=== PATIENT | female | born 1965 | race Caucasian/White ===

== ENCOUNTER 2019-06-22 11:07 | Day surgery (SDC) | payer BC ==
[2019-06-16 16:21] VITALS: BMI 40.2
[2019-06-22] MEDS ORDERED: HYDROmorphone 0.5 MG/0.5 ML SYRINGE IVP PRN (11:45)
[2019-06-22] MEDS ORDERED: MIDAZOLAM 2 MG/2 ML VIAL IV PRN (11:45)
[2019-06-22] MEDS: LACTATED RINGERS 1,000 ML IV SCH (12:10)
[2019-06-22 12:28] LABS: Anisocytosis Slight; Basophils # (A) 0.1 k/uL (0-0.2); Basophils % (A) 1 %; Eosinophils # (A) 0.2 k/uL (0-0.7); Eosinophils % (A) 2 %; HCT 45.8 % (34.0-46.0); HGB 15.3 gm/dL (11.4-16.0); Lymphocytes # (A) 0.8 k/uL (1.0-4.8); Lymphocytes % (A) 9 %; MCHC 33.4 g/dL (31.0-37.0); MCV 89.6 fL (80.0-100.0); Mean Platelet Volume 7.1; Monocytes # (A) 0.5 k/uL (0-1.0); Monocytes % (A) 5 %; Neutrophils # (A) 7.1 k/uL (1.3-7.7); Neutrophils % (A) 81 %; Platelet Count 370 k/uL (150-450); RBC 5.11 m/uL (3.80-5.40); RDW 16.7 % (11.5-15.5); WBC 8.7 k/uL (3.8-10.6)
[2019-06-22] MEDS ORDERED: IV FLUID CONTINUATION 950 ML IV ONE (12:34)
[2019-06-22] MEDS ORDERED: FUROSEMIDE 10 MG/ML 2 ML VIAL ONE (12:34)
[2019-06-22] MEDS ORDERED: PHENYLEPHRINE-0.9% NACL SYG 1 MG/10 ML SYRINGE ONE (12:34)
[2019-06-22] MEDS ORDERED: fentaNYL (PF) 50 MCG/ML 2 ML AMP ONE (12:34)
[2019-06-22] MEDS ORDERED: ROPIVACAINE 5MG/ML 20ML VIAL ONE (12:34)
[2019-06-22] MEDS ORDERED: MIDAZOLAM 2 MG/2 ML VIAL ONE (12:34)
[2019-06-22] MEDS ORDERED: PROTAMINE SULFATE 10 MG/ML 5 ML VIAL IV ONE (12:34)
[2019-06-22] MEDS ORDERED: PROPOFOL 10 MG/ML 20 ML VIAL IV ONE (12:34)
[2019-06-22] MEDS ORDERED: HEPARIN SODIUM,PORCINE 10,000 UNIT/ML 1 ML VIAL ONE (12:34)
[2019-06-22] MEDS ORDERED: SUCCINYLCHOLINE CHLORIDE VIAL 200 MG/10 ML VIAL IV ONE (12:34)
[2019-06-22] MEDS ORDERED: LIDOCAINE 1% INJ 10MG/ML (20 ML MDV) SQ ONE (13:25)
[2019-06-22] MEDS ORDERED: HEPARIN SODIUM (1,000 UNIT/ML) 1,000 UNIT in SODIUM CHLORIDE 0.9% 1,000 ML IRRIGATION ONE (13:46)
[2019-06-22] MEDS ORDERED: HEPARIN SOD,PORK IN 0.45% NACL 25,000 UNIT in 0.45% NACL 1 250ML.BAG IV ONE (13:46)
[2019-06-22] MEDS ORDERED: LACTATED RINGERS 1,000 ML IV ONE (17:15)
[2019-06-22] MEDS ORDERED: IOPAMIDOL-370 100ML BTL INJ ONE (17:16)
--- NOTE | 2019-06-22 18:09 | P.PCN ---
Preoperative Diagnosis: Diagnosis Atrial tachycardia with RVR refractory to drug therapy Atrial fibrillation, symptomatic, refractory to therapy Result No left atrial appendage mass seen on intracardiac echo Successful ablation for atrial tachycardia. Likely micro-reentrant focus outside the right superior pulmonary vein, on the roof Left atrial roof line, linear ablation joining the islands of scar tissue along the anterior roof Significant reduction in the voltage on the posterior wall of the left atrium Successful pulmonary vein isolation of all veins using cryo-ablation Complete entrance block in all 4 veins confirmed No evidence for phrenic nerve injury Esophageal deflection NO Electrical cardioversion with a synchronized shock across the chest NO Procedure details Patient was brought to the EP lab in a fasting state. Written informed consent was obtained prior to the procedure. Procedure performed under general anesthesia After initial muscle relaxant use, muscle relaxants were not given thereafter in order to assess phrenic nerve during procedure. Patient prepped and draped as per protocol Full cryo-set up with standard preparation of the cryoablation tools done. Femoral Venous access obtained on the right and left groins Venous and arterial Sheaths placed. Diagnostic catheters for the high right atrium, phrenic nerve stimulation and pacing, His bundle, RV and coronary sinus placed Intracardiac echo catheter placed. Long sheath placed in the right atrium Left and right transseptal catheterization performed under intracardiac echo guidance. Intravenous heparin with aCT above 300 Later, catheter positioning and balloon positioning in the left atrium, under intracardiac echo guidance Diagnostic EP study with Drug infusion Coronary sinus pacing and recording Baseline measurements QRS 75 ms, QT 318 ms, sinus cycle length 1318 ms, TN 165 ms AH interval 74 ms and HV interval 35 ms Sinus recovery times at 600 540 ms were 1552, 1647 and 1760 ms. Corrected sinus node recovery times within normal limits AV node Wenckebach block 400 ms VA Wenckebach block greater than 600 ms Atrial pacing at 450 ms, AH interval was 195 ms High-dose Isuprel was used and there was no inducible atrial tachycardia or atrial flutter. Atrial pacing performed from the high right atrium and the coronary sinus RV pacing Transseptal catheterization performed RA pressure 29/13/21 LA pressure 33/12/24 Patient was in an atrial tachycardia the start of the study atrial tachycardia cycle length was about 260 ms. 3-D electro-anatomic mapping of the right atrium was performed and the earliest site was in the high septum just below the septal aspect of the SVC Left right transseptal catheterization was performed Electrical anatomic mapping of the left atrium was performed and a focal area of earliest activation was noted outside the antrum of the right superior pulmonary vein on the roof RF applications he resulted in termination of the tachycardia However voltage mapping of the left atrium showed there was significant scar, in the posterior wall and along the roof Therefore these islands of scar along with the intervening healthy tissue with joint hyperkalemia RF ablation from the right superior to the left superior pulmonary veins Complete line of block was made Thereafter pulmonary vein isolation as described below was performed Transseptal catheterization performed with standard sheath. The cryoablation sheath was then placed with an over the wire exchange without any acute complications. All 4 pulmonary veins were isolated in the following sequence: Left superior followed by left inferior followed by right superior followed by right inferior The cryo-ablation balloon was placed at the os of each vein 1.5 mL of IV dye was injected to confirm an occluded vein Goal during cryoablation was to achieve complete occlusion of the pulmonary vein, achieve -30 degrees C at 30 seconds and achieve -40 degrees C at 60 seconds and a time to effect of less than 60-90 seconds, . If not the balloon was repositioned to obtain this result After completion of Cryoblation with durations from 180-240 seconds, entrance block was confirmed with the Attain circular catheter in a roving fashion around the antrum of the pulmonary veins Phrenic nerve pacing was performed from the SVC, right innominate vein area and diaphragm voltage was monitored. Diaphragmatic contractions were also monitored manually for strength of contraction. Parameter goals for each cryo freeze Complete occlusion of the appropriate vein -30 degrees C by 30 seconds -40 degrees C by 60 seconds Minimum between minus 40-55 degrees C Thaw time greater than 10 seconds Balloon visualized by intracardiac echo The esophagus was intubated. Esophageal Temperature monitoring with a CIRCA catheter formed. Esophageal deflection for hypothermia of the esophagus below 30 degrees C Left superior pulmonary vein Complete isolation, entrance block Left inferior pulmonary vein Complete isolation, entrance block Right superior pulmonary vein, during phrenic nerve pacing Complete isolation, entrance block, anterolateral ablation Right inferior pulmonary vein, during phrenic nerve pacing Complete isolation, entrance block At the end of the procedure the Achieve catheter was once again used to check for entrance block Phrenic nerve stimulation was performed to confirm diaphragmatic stimulation the end of the procedure Cine fluoroscopy was performed at the very end of the procedure to confirm movement of both diaphragms with inspiration and expiration At the end of the procedure the patient was extubated Heparin was reversed Venous sheaths were removed and hemostasis assured Procedures performed (PVI - CRYO Ablation) Diagnostic EP study CS pacing and recording Left and right transseptal catheterization 3D mapping) Intracardiac echocardiography Pulmonary vein isolation with transseptal and comprehensive EPS, [id number] Left atrial roof line, +[id number] Focal ablation of discrete arrhythmia, left atrium, +[id number] Drug Infusion +[id number]
[2019-06-22] MEDS: SODIUM CHLORIDE 0.9% 1,000 ML IV SCH (18:16)
--- NOTE | 2019-06-22 18:21 | P.HPCAR ---
History of Present Illness This is Dr. Mckeon dictating a consult on this patient The patient was interviewed and examined by me IMPRESSION / ASSESSMENT: Symptomatic atrial tachycardia drug refractory with RVR Paroxysmal atrial fibrillation, recurrent History of sarcoidosis Patient stable from a cardiac vascular standpoint to proceed which and anesthesia. She has no chest discomfort dizziness loss of consciousness no orthopnea PND no-cost initial symptoms no pulmonary symptoms Long postconversion pauses and bradycardia noted on Holter monitor PLAN: Proceed with EP study and atrial tachycardia ablation and then subsequently pulmonary vein isolation for management of atrial fibrillation Continue anticoagulation Discontinue class on antiarrhythmic drug therapy Reassessment of LV function as an outpatient HPI Patient complains of palpitations and rapid heartbeat with some shortness of breath with exertion She denies any orthopnea PND No syncope no chest discomfort She does have a slightly runny nose but no off no central or expectoration no significant pulpy symptoms No urinary symptoms No constitutional symptoms no fever chills ROS: No fever chills or rigors, no cough, phlegm or expectoration, no nausea, vomiting or diarrhea, no hematuria, dysuria, no musculoskeletal complaints, no strokes or seizures, no skin lesions. EXAMINATION: 144/87 mmHg pulse rate 125 bpm, afebrile Breath sounds are clear no rhonchi no crackles Heart sounds S1 and S2 are tachycardic no murmurs or gallop Abdomen soft nontender Extremities warm no edema REVIEW OF LABS, ECG & MEDICAL DATA White count 8.7, hemoglobin 15.3, platelet count 370,000 Physical Exam Vitals: Vital Signs Temp Pulse Pulse Resp BP Pulse Ox 06/22/19 18:11 67 14 150/83 100 06/22/19 17:57 97.0 F L 66 16 126/61 99 06/22/19 11:52 97.6 F 125 H 20 144/87 97 Intake and Output 06/22/19 06/22/19 06/22/19 06:59 14:59 22:59 Intake Total 1439 Output Total 400 Balance 1439 -400 Intake: IV 1439 Output: Urine 400 Other: Weight 109.769 kg Past Medical History Past Medical History: Hypertension, Thyroid Disorder Additional Past Medical History / Comment(s): SARCOIDOSIS History of Any Multi-Drug Resistant Organisms: None Reported Past Surgical History: Appendectomy, Tubal Ligation Additional Past Surgical History / Comment(s): exp laparotomy, lung biopsy Past Anesthesia/Blood Transfusion Reactions: No Reported Reaction Smoking Status: Never smoker - Past Family History Mother Family Medical History: No Reported History Physical Examination Vital Signs Temp Pulse Pulse Resp BP Pulse Ox 06/22/19 18:11 67 14 150/83 100 06/22/19 17:57 97.0 F L 66 16 126/61 99 06/22/19 11:52 97.6 F 125 H 20 144/87 97 Intake and Output 06/22/19 06/22/19 06/22/19 06:59 14:59 22:59 Intake Total 1439 Output Total 400 Balance 1439 -400 Intake: IV 1439 Output: Urine 400 Other: Weight 109.769 kg Results 06/22/19 12:10 CBC 06/22/19 Range/Units 12:10 WBC 8.7 (3.8-10.6) k/uL RBC 5.11 (3.80-5.40) m/uL Hgb 15.3 (11.4-16.0) gm/dL Hct 45.8 (34.0-46.0) % Plt Count 370 (150-450) k/uL Current Medications Generic Name Dose Route Start Last Admin Trade Name Freq PRN Reason Stop Dose Admin Hydromorphone HCl 0.5 mg 06/22/19 11:45 Dilaudid IVP 06/23/19 11:46 Q5M PRN Pain Control Sodium Chloride 1,000 mls @ 20 mls/hr 06/22/19 11:45 06/22/19 18:16 Saline 0.9% IV Not Given .Q24H KENNEDY Lactated Ringer's 1,000 mls @ 20 mls/hr 06/22/19 11:45 06/22/19 12:10 Lactated Ringers IV 50 mls .Q24H KENNEDY Administration Midazolam HCl 2 mg 06/22/19 11:45 Versed IV 06/23/19 11:46 ONCE PRN Anxiety Intake and Output 06/22/19 06/22/19 06/22/19 06:59 14:59 22:59 Intake Total 1439 Output Total 400 Balance 1439 -400 Intake: IV 1439 Output: Urine 400 Other: Weight 109.769 kg Patient Weight 06/23/19 06:59 Weight 109.769 kg 06/22/19 12:10
[2019-06-22] MEDS ORDERED: ACETAMINOPHEN IV (For NPO) 1,000 MG in EMPTY BAG 1 BAG IVPB ONE (18:23)
[2019-06-22] MEDS ORDERED: HYDROcodone/APAP 5-325MG 1 EACH TAB PO PRN (18:23)
[2019-06-22] MEDS ORDERED: ACETAMINOPHEN TAB 325 MG TAB PO PRN (18:23)
[2019-06-22] MEDS ORDERED: ONDANSETRON 4 MG/2 ML VIAL IVP PRN (21:25)
[2019-06-22] MEDS: APIXABAN 5 MG TAB PO SCH (21:25)
[2019-06-23] MEDS ORDERED: LEVOTHYROXINE 75 MCG TAB PO SCH (06:30)
--- NOTE | 2019-06-23 07:32 | P.DS ---
Providers Attending physician: Ted Mckeon Primary care physician: [facility] Course: Patient is doing well from a cardiac standpoint. Her main complaint is soreness in her throat no dysphagia and odynophagia other than discomfort just in her throat. No chest discomfort no pleuritic chest discomfort no shortness of breath she looks comfortable Heart rate is in the 80s sinus mechanism she does not feel any palpitations Groins healing well there was no bleeding issues overnight On examination blood pressures 118/76 mmHg pulse rate in the 80s afebrile 98.3F Breath sounds are clear no rhonchi no crackles Heart sounds are normal. Normal S1 normal S2 no murmurs or gallops. Abdomen soft nontender Plans of healed well No lower extremity edema. Impression Micro- reentrant atrial tachycardia outside the right superior for remained on the roof, successful termination of atrial tachycardia Linear ablation through islands of reduced voltage along the anterior roof, from the right superior to the left superior pulmonary vein Pulmonary vein isolation with cryoablation Long postconversion pause upon successful termination of atrial tachycardia Baseline AH and HV intervals are normal With pacing at 450 ms, AH interval is 195 ms History of sarcoidosis 2-D echo preoperatively showed reduced LV systolic function Biatrial enlargement Significantly reduced voltage along the posterior wall of the left atrium during atrial tachycardia mapping Plan No more class 1 antiarrhythmic drugs Avoid AV dora blocking drugs Continue ELIQUIS Continue amlodipine Reassessment of LV function and for 6 weeks. Consider cardiac MRI Patient was diagnosed with sarcoidosis by Dr. Davenport Plan - Discharge Summary Discharge Rx Participant: Yes New Discharge Prescriptions: Discontinued Metoprolol Tartrate [Lopressor] 25 mg PO BID Disopyramide Phosphate [Norpace Cr] 100 mg PO BID No Action amLODIPine [Norvasc] 5 mg PO DAILY Levothyroxine Sodium [Synthroid] 75 mcg PO DAILY Escitalopram [Lexapro] 10 mg PO DAILY Apixaban [Eliquis] 5 mg PO BID Discharge Medication List Escitalopram [Lexapro] 10 mg PO DAILY 08/28/14 [History] Levothyroxine Sodium [Synthroid] 75 mcg PO DAILY 08/28/14 [History] amLODIPine [Norvasc] 5 mg PO DAILY 08/28/14 [History] Apixaban [Eliquis] 5 mg PO BID 06/16/19 [History] Follow up Appointment(s)/Referral(s): Ted Mckeon MD [STAFF PHYSICIAN] - 1 Week (Follow-up with Dr. Mckeon/Laney Guaman/Irma Farooq) Activity/Diet/Wound Care/Special Instructions: Post EP study - Ablation instructions 1. Keep access sites dry for 2 days. 2. No heavy lifting or straining for 2 days. 3. Avoid bending the hips repeatedly for 2 days. 4. You may go up and down stairs slowly Call if the following is noted 1. Bleeding, increasing swelling or pain at the access sites. 2. Increasing chest discomfort, especially upon taking a deep breath. 3. Increasing shortness of breath, at rest or with exertion. 4. Undue cough / phlegm 5. Difficulty or pain while swallowing. 6. Pain or change in color in the extremities. 7. Fever, chills, rigors. 8. Increasing headache or neurologic symptoms. 9. Dizziness, fainting, palpitations
[2019-06-23] MEDS: APIXABAN 5 MG TAB PO SCH (07:53)
[2019-06-23] MEDS ORDERED: amLODIPine 5 MG TAB PO SCH (09:00)
[2019-06-23] MEDS: LACTATED RINGERS 1,000 ML IV SCH (12:10)
[2019-06-23] MEDS: SODIUM CHLORIDE 0.9% 1,000 ML IV SCH (12:10)
[2019-06-23 15:42] VITALS: BP 133/83; PULSE 88; RESP 18; TEMP 97
== END 2019-06-23 17:15 ==
LOC: CATHEP 11:07 → 1SOBS 17:15 → CATHEP 06-23 17:15
PROVIDERS: ATTEND Internal Medicine Clinical Cardiac Electrophysiology
DX: I47.1 Supraventricular tachycardia (principal); I48.0 Paroxysmal atrial fibrillation; D86.9 Sarcoidosis, unspecified; E07.9 Disorder of thyroid, unspecified; Z98.51 Tubal ligation status; K21.9 Gastro-esophageal reflux disease without esophagitis; Z79.01 Long term (current) use of anticoagulants; Z79.890 Hormone replacement therapy; Z79.899 Other long term (current) drug therapy
CPT/HCPCS: 85347; 93623; 93662; 93613; 93656; 93657; 85025; 84703; C1894 ×2; C1769 ×4; C1730 ×4; C1731; C1759; C1893; C1733; C1732; J2250; J0330; J2720; J1644 ×3; J1940; J2001; J3010; J2370; J2704; Q9967; J2795

== ENCOUNTER 2019-11-05 12:04 | Day surgery (SDC) | payer BC ==
[2019-11-02 15:49] VITALS: BMI 38.9
[~2019-11-05 12:04] MED LIST: SODIUM CHLORIDE 0.9% 1,000 ML IV SCH
[2019-11-05 13:07] LABS: Basophils # (A) 0.1 k/uL (0-0.2); Basophils % (A) 1 %; Eosinophils # (A) 0.2 k/uL (0-0.7); Eosinophils % (A) 2 %; HCT 46.1 % (34.0-46.0); HGB 15.2 gm/dL (11.4-16.0); Lymphocytes # (A) 1.1 k/uL (1.0-4.8); Lymphocytes % (A) 13 %; MCH 29.4 pg (25.0-35.0); MCHC 32.9 g/dL (31.0-37.0); MCV 89.2 fL (80.0-100.0); Mean Platelet Volume 7.5; Monocytes # (A) 0.5 k/uL (0-1.0); Monocytes % (A) 6 %; Neutrophils # (A) 6.2 k/uL (1.3-7.7); Neutrophils % (A) 76 %; Platelet Count 430 k/uL (150-450); RBC 5.17 m/uL (3.80-5.40); RDW 14.3 % (11.5-15.5); WBC 8.1 k/uL (3.8-10.6)
[2019-11-05 13:23] LABS: African American GFR (CKD) >90 (>60 ml/min/1.73 sqM); Anion Gap 12 mmol/L; Blood Urea Nitrogen 14 mg/dL (7-17); Calcium 9.5 mg/dL (8.4-10.2); Carbon Dioxide 21 mmol/L (22-30); Chloride 107 mmol/L (98-107); Glucose 95 mg/dL (74-99); Non-African American GFR(CKD) 90 (>60 ml/min/1.73 sqM); Sodium 140 mmol/L (137-145)
[2019-11-05 13:48] LABS: Potassium 4.9 mmol/L (3.5-5.1)
[2019-11-05] MEDS ORDERED: HEPARIN SODIUM,PORCINE 10,000 UNIT/ML 1 ML VIAL ONE (14:03)
[2019-11-05] MEDS ORDERED: ROCURONIUM BROMIDE 10 MG/ML 10 ML VIAL IV ONE (14:03)
[2019-11-05] MEDS ORDERED: PROTAMINE SULFATE 10 MG/ML 5 ML VIAL IV ONE ×2 (14:03→18:51)
[2019-11-05] MEDS ORDERED: fentaNYL (PF) 50 MCG/ML 2 ML AMP ONE (14:03)
[2019-11-05] MEDS ORDERED: LIDOCAINE 1% INJ 10MG/ML (20 ML MDV) ONE ×2 (14:03→14:14)
[2019-11-05] MEDS ORDERED: MIDAZOLAM 2 MG/2 ML VIAL ONE (14:03)
[2019-11-05] MEDS ORDERED: PROPOFOL 10 MG/ML 20 ML VIAL IV ONE (14:03)
[2019-11-05] MEDS ORDERED: ISOPROTERENOL 250 MCG/1.25 ML SYR IV ONE (14:03)
[2019-11-05] MEDS ORDERED: SUCCINYLCHOLINE CHLORIDE 100 MG/5 ML SYR IV ONE (14:03)
[2019-11-05] MEDS ORDERED: FUROSEMIDE 10 MG/ML 2 ML VIAL ONE (14:03)
[2019-11-05] MEDS ORDERED: GLYCOPYRROLATE 0.2 MG/ML 2 ML VIAL ONE (14:03)
[2019-11-05] MEDS ORDERED: SODIUM CHLORIDE 0.9% 1,000 ML IV ONE ×2 (14:29)
[2019-11-05] MEDS ORDERED: HEPARIN SODIUM (1,000 UNIT/ML) 1,000 UNIT in SODIUM CHLORIDE 0.9% 1,000 ML IRRIGATION ONE ×4 (14:30)
[2019-11-05] MEDS ORDERED: LIDOCAINE 1% INJ 10MG/ML (20 ML MDV) SQ ONE (14:45)
[2019-11-05] MEDS ORDERED: HEPARIN SOD,PORK IN 0.45% NACL 25,000 UNIT in 0.45% NACL 1 250ML.BAG IV ONE (14:45)
[2019-11-05] MEDS ORDERED: LACTATED RINGERS 1,000 ML IV ONE (16:00)
--- NOTE | 2019-11-05 19:11 | P.HPCAR ---
History of Present Illness This is Dr. Mckeon dictating an H&P on this patient The patient was interviewed and examined by me IMPRESSION / ASSESSMENT: Refractory atrial tachycardia with RVR despite A. fib ablation unit ablation and atrial tachycardia ablation Symptomatic On anticoagulation History of sarcoidosis History of hypertension and tobacco use PLAN: EP study ended efficacy ablation of atrial tachycardia and mapping of the left and right atria HPI Patient underwent successful pulmonary vein isolation as well as linear ablation of the left atrial roof and an atrial tachycardia outside the right-sided pulmonary vein. This was in June 2019 Following that after few months she developed a rapid atrial tachycardia with RVR that was drug refractory was also difficult rate control and was refractory to antiarrhythmic drug therapy, flecainide Today she comes in for management of atrial tachycardia with EP study and radiofrequency ablation She denies any fever chills or rigors, phlegm or expectoration no chest pain no dizziness or loss of consciousness ROS: No fever chills or rigors, no cough, phlegm or expectoration, no nausea, vomiting or diarrhea, no hematuria, dysuria, no musculoskeletal complaints, no strokes or seizures, no skin lesions. EXAMINATION: Afebrile 98.1F, pulse rate 128 beats a minute at rest blood pressure 135/91 mmHg 95% O2 sat on room air Breath sounds are equal bilaterally no rhonchi no crackles Heart sounds are tachycardic no murmurs Abdomen soft No JVD no lower extremity edema REVIEW OF LABS, ECG & MEDICAL DATA Labs are reviewed hemoglobin 15.2 hematocrit 46 sodium 140 potassium 4.9 chlorid e 107 BUN 14 creatinine 0.76 Physical Exam Vitals: Vital Signs Temp Pulse Resp BP Pulse Ox 11/05/19 12:52 98.1 F 128 H 18 135/91 95 Intake and Output 11/05/19 11/05/19 11/05/19 06:59 14:59 22:59 Intake Total 1930.33 500 Output Total 200 Balance 1930.33 300 Intake: IV 1930. 500 Output: Urine 200 Other: Weight 111.4 kg Past Medical History Past Medical History: Atrial Fibrillation, Hypertension, Thyroid Disorder Additional Past Medical History / Comment(s): SARCOIDOSIS History of Any Multi-Drug Resistant Organisms: None Reported Past Surgical History: Appendectomy, Cardiac Ablation, Tubal Ligation Additional Past Surgical History / Comment(s): exp laparotomy, lung biopsy , CARDIAC ABLATION 06/2019 Past Anesthesia/Blood Transfusion Reactions: No Reported Reaction Smoking Status: Never smoker - Past Family History Mother Family Medical History: No Reported History Physical Examination Vital Signs Temp Pulse Resp BP Pulse Ox 11/05/19 12:52 98.1 F 128 H 18 135/91 95 Intake and Output 11/05/19 11/05/19 11/05/19 06:59 14:59 22:59 Intake Total 500 Output Total 200 Balance 300 Intake: IV 500 Output: Urine 200 Other: Weight 111.4 kg Results 11/05/19 12:35 11/05/19 12:35 CBC 11/05/19 Range/Units 12:35 WBC 8.1 (3.8-10.6) k/uL RBC 5.17 (3.80-5.40) m/uL Hgb 15.2 (11.4-16.0) gm/dL Hct 46.1 H (34.0-46.0) % Plt Count 430 (150-450) k/uL Comprehensive Metabolic Panel 11/05/19 Range/Units 12:35 Sodium 140 (137-145) mmol/L Potassium 4.9 (3.5-5.1) mmol/L Chloride 107 (98-107) mmol/L Carbon Dioxide 21 L (22-30) mmol/L BUN 14 (7-17) mg/dL Creatinine 0.76 (0.52-1.04) mg/dL Glucose 95 (74-99) mg/dL Calcium 9.5 (8.4-10.2) mg/dL Current Medications Generic Name Dose Route Start Last Admin Trade Name Cruzq PRN Reason Stop Dose Admin Sodium Chloride 1,000 mls @ 50 mls/hr 11/05/19 05:57 Saline 0.9% IV .Q20H KENNEDY Intake and Output 11/05/19 11/05/19 11/05/19 06:59 14:59 22:59 Intake Total 500 Output Total 200 Balance 300 Intake: IV 500 Output: Urine 200 Other: Weight 111.4 kg Patient Weight 11/06/19 06:59 Weight 111.4 kg 11/05/19 12:35 11/05/19 12:35
[2019-11-05] MEDS ORDERED: ACETAMINOPHEN TAB 325 MG TAB PO PRN (20:24)
[2019-11-05] MEDS ORDERED: HYDROcodone/APAP 5-325MG 1 EACH TAB PO PRN (20:24)
[2019-11-05] MEDS ORDERED: ACETAMINOPHEN IV (For NPO) 1,000 MG in EMPTY BAG 1 BAG IVPB ONE (20:24)
[2019-11-05] MEDS ORDERED: APIXABAN 5 MG TAB PO SCH (21:00)
[2019-11-05] MEDS: METOPROLOL TARTRATE 50 MG TAB PO SCH ×2 (21:07→21:25)
[2019-11-05] MEDS: APIXABAN 5 MG TAB PO SCH (21:08)
--- NOTE | 2019-11-06 06:12 | CE ---
CARDIAC ELECTROPHYSIOLOGY REPORT Margoth Pearson is a 53-year-old female who has undergone PVI plus linear ablation of the left atrial roof and an atrial tachycardia ablation in the left atrium outside the right superior pulmonary vein. She had recurrence of atrial tachycardia and in fact, two different morphologies have been noted, both were associated with RVR and drug refractory to class 1 antiarrhythmic drugs as well refractory to rate control medications and she has resting heart rate of 120 to 130 beats per minute. No syncope. She was brought into the EP lab for an EP study and ablation. Patient was brought to the EP lab in a fasting state. Written informed consent was obtained prior to the procedure. The procedure was performed under general anesthesia. Right and left groins were prepped and draped as per protocol and 1% lidocaine was used for local anesthesia. Venous sheaths were placed in the right and left femoral veins. Via these, intracardiac echo catheters, coronary sinus catheter, and mapping ablation catheters placed including PentaRay catheter and an irrigated tip ablation catheter. This was a very long procedure requiring multiple maps involving the left atrium and the right atrium, multiple activation maps, multiple scar maps. First with transseptal catheterization, RA pressure 17/6/11 mmHg and LA pressure 27/6/18 mmHg. She was in atrial tachycardia with upright P-waves in V1 and slightly upright in the inferior leads. Activation mapping was performed. The pulmonary veins were completely isolated at an antral level. All 4 pulmonary veins were isolated. Activation mapping revealed earliest activation on the anterior wall just outside the right superior pulmonary vein RF line and below the roof line. This area was mapped and successful ablation was performed. The tachycardia cycle length was about 234 milliseconds. During RF ablation, there was a slight change in the activation pattern in the CS electrodes (still concentric however) with lengthening of the tachycardia cycle length to 250 milliseconds. Successful ablation was performed here, but remapping had to be performed of the left atrium since this appeared to be two simultaneous atrial tachycardias. Repeat activation mapping was performed in the left atrium and this time there was a small area of activation at the roof of the left atrium. Mechanical termination occurred when the catheter was placed at that site. RF ablation was applied here and the tachycardia was rendered noninducible. Both these tachycardias were actually slightly small broad areas of activation suggestive of micro reentry. Following this, a scar map of the left atrium was performed and RF ablation was applied in the mid roof to complete the roof line. Following this, Isuprel was started, burst stimulation of the atrium was performed from the coronary sinus. In sinus rhythm, the MN interval was 133 milliseconds, QRS 159 milliseconds, QT 343 milliseconds. AH interval 129 milliseconds, HV interval is 35 milliseconds. With burst stimulation, yet another different atrial tachycardia cycle length of about 250 milliseconds was induced with negatively oriented electrograms in the inferior leads and upright in V1. Electroanatomical mapping of the right atrium was performed, especially in the tricuspid anulus and the earliest activation in the right atrium was in the low septum and this was a secondary sweep occurring around the tricuspid anulus and did not appear to be typical atrial flutter. Mapping catheter was then placed back once again in the in the left atrium and the septum and the fossa ovalis were mapped in detail. Posterior to the fossa ovalis, the earliest activation was noted and it appeared that this was also a microreentrant circuit based upon our mapping and based upon the electrogram activation pattern in the proximal and distal electrodes. Mechanical termination occurred when this area was mapped and a short linear ablation was performed across this early activation. Following this, burst stimulation was performed without Isuprel and this fourth atrial tachycardia was very easily inducible. A 3D electroanatomical mapping, activation mapping was performed and this time this was just around the fossa ovalis close to the transseptal puncture site. RF ablation was applied here successfully and termination of the tachycardia occurred. Once the fourth tachycardia was successfully ablated, burst stimulation was once again performed and this time a fast atrial tachycardia cycle length of 200 milliseconds was noted. We started mapping this in the left atrium; however, there was change in the activation pattern in the coronary sinus and this was more like a very organized atrial fibrillation that looked like atrial tachycardia. At this point, mapping was stopped. Electrical cardioversion was successfully performed with a 200 joule biphasic shock and she was converted to sinus rhythm. This was a very long procedure involving multiple activation maps of 4 different microreentrant atrial tachycardias. A scar map was also performed. The left PentaRay catheter was used, the irrigated tip ablation catheter was used and the left atrial voltage map was performed. The voltage maps revealed that the veins were quiescent and the posterior wall, into venous zone was also quiescent. All her atrial tachycardias were from the anterior wall and from the septum. Mitral isthmus was also measured. It was approximately just over 3 cm. Mitral isthmus line was not made. Roof line was completed after the second tachycardia was ablated. This was a long procedure lasting for more than 5-1/2 hours involving multiple maps and multiple atrial tachycardias. Patient tolerated the procedure well without any acute complications. Intracardiac echo revealed no pericardial effusion. No left atrial thrombus. The 3D mapping, involved intracardiac echo, anatomic mapping as well as activation mapping and voltage mapping. MMMYAH / BRANDONN: [id number] /
[2019-11-06] MEDS ORDERED: LEVOTHYROXINE 75 MCG TAB PO SCH (06:30)
[2019-11-06] MEDS: APIXABAN 5 MG TAB PO SCH (08:55)
[2019-11-06] MEDS: METOPROLOL TARTRATE 50 MG TAB PO SCH (08:55)
[2019-11-06] MEDS ORDERED: amLODIPine 5 MG TAB PO SCH (09:00)
[2019-11-06] MEDS ORDERED: ESCITALOPRAM 10 MG TAB PO SCH (09:00)
[2019-11-06 09:09] VITALS: TEMP 97.7
[2019-11-06 13:03] VITALS: BP 135/64; PULSE 78; RESP 17
--- NOTE | 2019-11-06 13:09 | P.DS ---
Providers Attending physician: Ted Mckeon Primary care physician: Khushi [facility] Course: Patient is doing well. She does a little bit of a cough but no swallowing difficulty no chest discomfort no dizziness lightheadedness she is ablating in the hallways Vitals are stable afebrile 97.7 Blood pressure 135/64 mmHg normal respirations pulse rate in the 80s sinus rhythm Normal heart sounds normal S1 normal S2 no murmurs or gallops or rub Breath sounds are clear no rhonchi no crackles Extremity is warm no edema groins of healed well no hematoma Impression Persistent atrial tachycardia Multiple atrial tachycardias were induced, at least 4 and successfully ablated. She does have residual organized atrial fibrillation for which she was cardioverted Plan Discharge home today Continue antiplatelet coagulation Do not stop adequate ventilation for any reason for the next 2 months May consider Multaq in the future She is already failed flecainide Follow Dr. Mckeon within a week or 2 Patient Condition at Discharge: Stable Plan - Discharge Summary Discharge Rx Participant: Yes New Discharge Prescriptions: No Action amLODIPine [Norvasc] 5 mg PO DAILY Levothyroxine Sodium [Synthroid] 75 mcg PO DAILY Escitalopram [Lexapro] 10 mg PO DAILY Apixaban [Eliquis] 5 mg PO BID Cetirizine HCl [Zyrtec] 10 mg PO DAILY Metoprolol Tartrate [Lopressor] 50 mg PO BID Discharge Medication List Escitalopram [Lexapro] 10 mg PO DAILY 08/28/14 [History] Levothyroxine Sodium [Synthroid] 75 mcg PO DAILY 08/28/14 [History] amLODIPine [Norvasc] 5 mg PO DAILY 08/28/14 [History] Apixaban [Eliquis] 5 mg PO BID 06/16/19 [History] Cetirizine HCl [Zyrtec] 10 mg PO DAILY 11/02/19 [History] Metoprolol Tartrate [Lopressor] 50 mg PO BID 11/02/19 [History] Follow up Appointment(s)/Referral(s): Ted Mckeon MD [STAFF PHYSICIAN] - 11/13/19 4:30 pm Patient Instructions/Handouts: Dronedarone (By mouth), Cardiac Ablation (DC)
--- NOTE | 2019-11-06 13:12 | P.PN ---
Subjective Dear Khushi aHmmond underwent successful ablation of 4 atrial tachycardias. These were 4 different atrial tachycardias. However she does have residual organized atrial fibrillation and she was cardioverted for this. She will continue anticoagulation unchanged and I will see her again in about a week next Thank you for entrusting me with the care of the patient Warm regards Sincerely Ted Mckeon Objective - Vital Signs Vital signs: Vital Signs Temp 97.7 F 11/06/19 08:00 Pulse 78 11/06/19 12:10 Resp 17 11/06/19 12:10 BP 135/64 11/06/19 12:10 Pulse Ox 93 L 11/06/19 12:10 Intake & Output 11/05/19 11/06/19 11/06/19 18:59 06:59 18:59 Intake Total 2431.33 75 120 Output Total 200 2200 Balance 2231.33 -2125 120 Weight 111.4 kg 112.7 kg Intake: IV 2431.33 75 Oral 120 Output: Urine 200 2200 Other: Voiding Method Toilet # Voids 0 2 - Labs CBC & Chem 7: 11/05/19 12:35 11/05/19 12:35 Labs: Abnormal Lab Results - Last 24 Hours (Table) 11/05/19 Range/Units 12:35 Carbon Dioxide 21 L (22-30) mmol/L
== END 2019-11-06 15:03 | disposition home or self-care (01) ==
LOC: CATHEP 12:04 → 3SCARD 18:50 → CATHEP 11-06 15:03
PROVIDERS: ATTEND Internal Medicine Clinical Cardiac Electrophysiology
DX: I48.91 Unspecified atrial fibrillation (principal); I47.1 Supraventricular tachycardia; I10 Essential (primary) hypertension; D86.9 Sarcoidosis, unspecified; E07.9 Disorder of thyroid, unspecified; F41.9 Anxiety disorder, unspecified; Z79.01 Long term (current) use of anticoagulants; Z79.890 Hormone replacement therapy; Z79.899 Other long term (current) drug therapy; Z90.49 Acquired absence of other specified parts of digestive tract; Z98.51 Tubal ligation status; Z72.0 Tobacco use
CPT/HCPCS: 85347; 93623; 93662; 93613; 93656; 93657; 80048; 85025; C1759; C1769 ×3; C1894; C1730; C1731; C1893; C1732; J2250; J2720; J1644 ×3; J1940; J2001; J3010; J0330; J2704

== ENCOUNTER → 2019-11-11 | Outpatient (CLI) | payer BC ==
--- NOTE | 2019-11-11 21:33 | CT ---
EXAMINATION TYPE: CT chest w con DATE OF EXAM: 11/11/2019 COMPARISON: Chest x-ray one week earlier and older x-ray from 2014. HISTORY: Sarcoidosis and difficulty breathing. CT DLP: 721 mGycm. Automated Exposure Control for Dose Reduction was Utilized. TECHNIQUE: CT scan of the thorax is performed following with IV Contrast, patient injected with 100m l mL of Isovue 300. FINDINGS: LUNGS: Corresponding to x-ray abnormality there is large area of triangular shaped consolidation with some areas of groundglass opacity and air bronchograms throughout the right middle lobe. Right middl e lobe bronchus shows narrowing and occlusion towards the hilum. There are additional patchy areas of groundglass opacity centrally throughout the right lower lobe and centrally in the right upper lobe. There are additional areas of reticulonodular opacity most prominent posteriorly in the right upper lobe and linear atelectasis and/or scarring scattered bilaterally more prominent in the periphery. Th ere are subpleural nodular densities throughout both lower lobes. There are scattered pulmonary nodul es also identified. For reference with larger nodules right lower lobe measures 1.2 x 0.9 cm axial im age 34. For reference superior left lower lobe nodule measures 10 x 6 mm axial image 28. MEDIASTINUM: There are significant confluent bilateral hilar adenopathy along with multiple enlarged mediastinal lymph nodes. For reference paratracheal lymph node measures 1.7 x 1.6 cm axial image 22. For reference subcarinal lymph node measures 5.3 x 2.1 cm axial image 29. Some areas of hyperdensity are present in some of the lymph nodes. Some of them lymph nodes are fairly confluent in appearance. No cardiomegaly or pericardial effusion is seen. Mild to moderate biatrial dilatation is noted. En larged main pulmonary artery is 3.1 cm axial image 27. CT findings consistent with underlying pulmona ry artery hypertension. OTHER: Wist-tg-mexxolqs multilevel spurring in the spine. IMPRESSION: Abnormal thoracic adenopathy. Abnormal pulmonary findings. Findings favor product of know n sarcoidosis. With areas of groundglass opacity and dense right middle lobe consolidation areas of a ctive infection are not excluded. With multiple nodules, neoplasm though unlikely is not entirely exc luded. Not typical pattern of metastatic disease. Bronchoscopy evaluation may be beneficial. PET/CT m ay be considered also to further evaluate along with bronchoscopy.
== END | disposition home or self-care (01) ==
LOC: RADCTMAIN 16:37
PROVIDERS: ATTEND Internal Medicine Critical Care Medicine
DX: D86.9 Sarcoidosis, unspecified (principal); R91.8 Other nonspecific abnormal finding of lung field; R59.0 Localized enlarged lymph nodes
CPT/HCPCS: 71260; Q9967

== ENCOUNTER 2019-11-24 10:35 | Day surgery (SDC) | payer BC ==
[2019-11-20 15:34] VITALS: BMI 39.6
[~2019-11-24 10:35] MED LIST changes: +LACTATED RINGERS 1,000 ML IV SCH
[2019-11-24 10:58] VITALS: RESP 16; TEMP 97.7
[2019-11-24] MEDS ORDERED: SODIUM CHLORIDE 0.9% 500 ML 500 ML IV ONE (10:58)
[2019-11-24] MEDS ORDERED: PROPOFOL 10 MG/ML 20 ML VIAL IV ONE (11:22)
--- NOTE | 2019-11-24 11:38 | P.PCN ---
<Laney Guaman - Last Filed: 11/24/19 11:38> Preoperative Diagnosis: Diagnosis: Persistent symptomatic atrial fibrillation Electrical cardioversion under anesthesia Indication: Persistent symptomatic atrial fibrillation Patient currently on multaq 400 mg twice a day and metoprolol titrate 50 mg by mouth twice a day Procedure: Successful electrical cardioversion for atrial fibrillation 360 Joules biphasic shock was used successfully to convert the patient to sinus rhythm with a long postconversion pause, almost 4 seconds Plan: Continue anti-coagulation Reduce dose of metoprolol to 25 mg by mouth twice a day Continue Multaq Follow-up with the patient one week <Ted Mckeon - Last Filed: 11/24/19 12:07> Preoperative Diagnosis: Successful electrical cardioversion to sinus rhythm, long postconversion pause Continue metoprolol at a low dose and continue Multaq
[2019-11-24 12:44] VITALS: BP 123/66; PULSE 63
== END 2019-11-24 12:42 | disposition home or self-care (01) ==
LOC: CATHCVL 10:35
PROVIDERS: ATTEND Internal Medicine Clinical Cardiac Electrophysiology
DX: I48.19 Other persistent atrial fibrillation (principal); D86.9 Sarcoidosis, unspecified; F41.9 Anxiety disorder, unspecified; I10 Essential (primary) hypertension; I48.92 Unspecified atrial flutter; E07.9 Disorder of thyroid, unspecified; F32.9 Major depressive disorder, single episode, unspecified; Z98.890 Other specified postprocedural states; Z79.01 Long term (current) use of anticoagulants; Z72.0 Tobacco use; Z79.890 Hormone replacement therapy; Z79.899 Other long term (current) drug therapy; Z90.49 Acquired absence of other specified parts of digestive tract; Z98.51 Tubal ligation status
CPT/HCPCS: 92960; J2704

== ENCOUNTER → 2019-12-24 | Day surgery (SDC) | payer BC ==
[2019-12-21 14:06] VITALS: BMI 38.9
[~2019-12-24] MED LIST changes: +ALBUTEROL NEB (CONC) 2.5 MG/0.5 ML INHALATION ONE; +GLYCOPYRROLATE 0.2 MG/ML 2 ML VIAL ONE; +LIDOCAINE 1% (10MG/ML) FOR IV START INTRADERMA PRN; +LIDOCAINE 1% INJ 10MG/ML (20 ML MDV) ONE; +LIDOCAINE 2% (PF) 20 MG/ML 5 ML VIAL INHALATION ONE; +LIDOCAINE VISCOUS 300 MG/15 ML CUP MUCOUS MEM ONE; +MIDAZOLAM 2 MG/2 ML VIAL ONE; +NEOSTIGMINE 1 MG/ML 10 ML VIAL ONE; +PROPOFOL 10 MG/ML 20 ML VIAL IV ONE; +Pre Op ABX Message 1 EACH MISC MISCELLANE ONE; +ROCURONIUM BROMIDE 10 MG/ML 5 ML VIAL IV ONE; +fentaNYL (PF) 50 MCG/ML 2 ML AMP ONE
--- NOTE | 2019-12-24 12:42 | P.PCN ---
Date of Procedure: 12/24/19 Preoperative Diagnosis: Sarcoidosis Postoperative Diagnosis: Recurrent sarcoidosis, awaiting pathologic confirmation Procedure(s) Performed: Flexible bronchoscopy, bronchial alveolar lavage of the right middle lobe, transbronchial biopsies of the right lung Anesthesia: MAC Surgeon: Caitlin Davenport Estimated Blood Loss (ml): 0 Pathology: other Condition: stable Disposition: same day Operative Findings: 1 narrowing of the right middle lobe bronchus, unable to visualize the various segments within the right middle lobe bronchus including the right middle and right lower lobe 2.Edematous/erythematous airways throughout the tracheobronchial tree, consider sarcoidosis as being the underlying cause. This procedure was done and operating room. The patient was intubated and placed on a mechanical ventilator in the usual fashion. Anesthesia was at the bedside. After achieving adequate sedation, the flexible bronchoscope was introduced through the oral tracheal tube was advanced into the lower trachea. The tip of the ET tube was seen around 2 cm above the aggie. An airway inspection was done. The airways looked quite edematous and erythematous throughout with significant narrowing of the right middle lobe bronchus. On the bilateral mainstem bronchi were within normal limits. The bronchoscope was then moved to the right upper lobe that was bifurcated and the various segments were evaluated inspected. Following that the bronchoscope was moved to the right middle lobe. I was able to wedge the bronchoscope in the right middle lobe orifice. I was unable to visualize the medial and lateral segments of the right middle lobe. Various segments of the right lower lobe were patent including the anterior lateral posterior and superior. The bronchoscope was then moved to the left side but examination left-sided included left mainstem bronchus, left upper lobe bronchus including the apical posterior and anterior segments and the lingular segments. His initial left lower lobe was also done including the anterior lateral posterior segment and the superior segment. The bronchoscope was then moved to the right middle lobe and the bronchioloalveolar lavage was done. A total of 80 mL of fluid was infused and 20 mL was aspirated. Following that, using fluoroscopic guidance, chest on the biopsies of the right upper lobe, right middle lobe and right lower lobe was done. Several biopsies were obtained. There was no endobronchial bleeding. The biopsy was completed without any complications. Bronchoscope was subsequently removed and the procedure was terminated. The patient was transferred recovery in stable condition. The chest x-rays to follow.
--- NOTE | 2019-12-24 13:02 | FL ---
EXAMINATION TYPE: FL bronchoscopy DATE OF EXAM: 12/24/2019 CLINICAL HISTORY: Right lung biopsy. Bronchoscopy. Fluoroscopic documentation. TECHNIQUE: Fluoroscopy. COMPARISON: None. FINDINGS: Fluoroscopic guidance was provided during procedure performed by Dr. Davenport. A total of 1 minute and 48 seconds of fluoroscopic time was utilized during the procedure and 1 spot image was acquired. IMPRESSION: As Above.
[2019-12-24 13:03] VITALS: RESP 16; TEMP 97
--- NOTE | 2019-12-24 13:24 | XR ---
EXAMINATION TYPE: XR chest 1V portable DATE OF EXAM: 12/24/2019 COMPARISON: 08/28/2014 HISTORY: Post bronchoscopy examination TECHNIQUE: Single frontal view of the chest is obtained. FINDINGS: Right basilar opacity is seen status post bronchoscopy. No postprocedural pneumothorax. Re mainder the lungs are well aerated. Cardiomediastinal silhouette is partially obscured but overall st able. No acute osseous pathology. IMPRESSION: Postbiopsy change of the right lower lung with no postbiopsy pneumothorax seen.
[2019-12-24 13:38] VITALS: PULSE 74
[2019-12-24 13:42] VITALS: BP 113/57
[2019-12-24 18:51] LABS: Appearance,BF Hazy; Color,BF Orange; Nucleated Cells, Body Fluid 1100 /uL; RBC, Body Fluid 13950 /uL
[2019-12-24 19:28] LABS: Mononuclear WBC,Body Fluid 79 %; Polynuclear WBC,Body Fluid 21 %; Total Cells Counted,Body Fluid 100
== END ==
LOC: ORWHC2ENDO 11:04
PROVIDERS: ATTEND Internal Medicine Critical Care Medicine
DX: D86.9 Sarcoidosis, unspecified (principal); I48.20 Chronic atrial fibrillation, unspecified; F41.1 Generalized anxiety disorder; J47.9 Bronchiectasis, uncomplicated; I10 Essential (primary) hypertension; R00.0 Tachycardia, unspecified; E03.9 Hypothyroidism, unspecified; F32.9 Major depressive disorder, single episode, unspecified; Z82.49 Family history of ischemic heart disease and other diseases of the circulatory system; Z83.49 Family history of other endocrine, nutritional and metabolic diseases; Z84.89 Family history of other specified conditions; Z98.51 Tubal ligation status; Z98.890 Other specified postprocedural states; Z79.01 Long term (current) use of anticoagulants; Z79.890 Hormone replacement therapy; Z79.899 Other long term (current) drug therapy
CPT/HCPCS: 94640; 88108; 88305; 89050; 87252; 87070; 87205; 87116; 87102; 87206; 71045; 31628; 31624; J2250; J2710; J2001 ×2; J3010; J2704; 87496; 87498; 87502; 87529; 87634; 87798

== ENCOUNTER → 2020-03-04 | Outpatient (CLI) | payer BC ==
--- NOTE | 2020-03-04 14:19 | CT ---
EXAMINATION TYPE: CT chest w con DATE OF EXAM: 03/04/2020 COMPARISON: 11/11/2019 HISTORY: follow up sarcoidosis CT DLP: 507.8 mGycm. Automated Exposure Control for Dose Reduction was Utilized. TECHNIQUE: CT scan of the thorax is performed following with IV Contrast, patient injected with 100 mL of Isovue 300. FINDINGS: LUNGS: There remains enhancing triangular-shaped atelectasis of the right middle lobe as seen on the prior and linear atelectasis within the anterior left upper lobe that has increased from the prior. T he right middle lobe opacity when compared on coronal images the prior appears smaller. Innumerable s ubcentimeter bilateral scattered pulmonary nodules are redemonstrated with the largest nodules on the right measuring 1.2 cm and 0.8 cm on series 4 image 35 and 36 respectively. Interlobular septal thic kening is seen throughout. There is decrease in the degree of scattered groundglass opacities in comp arison the prior. MEDIASTINUM: Redemonstration of mediastinal and hilar adenopathy with some the largest lymph nodes in the pretracheal region measuring up to 1.5 cm in short axis, previously 1.6 cm and in the subcarinal region measuring up to 2.3 cm in short axis, previously 2.1 cm. Faint calcifications are seen within some of these lymph nodes. No pericardial effusion is seen. Mild coronary calcifications. There i s enlargement of the main pulmonary artery measuring 3.1 cm suggesting pulmonary arterial hypertensio n clinically. OTHER: Mild degree hepatic steatosis, limiting evaluation for hepatic masses. The entirety of the butch er is not seen. 4 mm left renal calculus appears nonobstructing. Mild multilevel degenerative disc di sease of the spine. IMPRESSION: 1. Redemonstration of stage II sarcoidosis with mediastinal/hilar adenopathy and pulmonary parenchyma l disease. Findings are similar to the prior of 11/11/2019. 2. Persistent near complete atelectasis of the right middle lobe. Ensure bronchoscopy included the ri ght middle lobe to exclude obstructing bronchial mass.
== END | disposition home or self-care (01) ==
LOC: RADCTMAIN 12:59
PROVIDERS: ATTEND Internal Medicine Critical Care Medicine
DX: D86.9 Sarcoidosis, unspecified (principal); R59.0 Localized enlarged lymph nodes; J43.9 Emphysema, unspecified; R22.2 Localized swelling, mass and lump, trunk
CPT/HCPCS: 71260; Q9967

== ENCOUNTER → 2020-07-23 | Outpatient (CLI) | payer BC ==
--- NOTE | 2020-07-23 08:34 | CT ---
EXAMINATION TYPE: CT chest w con DATE OF EXAM: 07/23/2020 COMPARISON: 03/02/2020 HISTORY: Sarcoidosis CT DLP: 683.2 mGycm Automated exposure control for dose reduction was used. CONTRAST: CT scan of the chest is performed with IV Contrast, patient injected with 100 mL of Isovue 300. FINDINGS: LUNGS: Area of consolidation involving the right middle lobe stable. There remain numerous bilateral pulmona ry nodules ranging in size from 1 mm to 6 mm. No pleural effusion. Interlobular septal thickening sug gest a degree of chronic underlying interstitial lung disease. No sizable pleural effusion. MEDIASTINUM: Heart size is enlarged and there is coronary artery calcification. Aorta of normal calib er. There is mediastinal and hilar lymphadenopathy and subcarinal lymphadenopathy similar in appearan ce to the prior exam. Measures a short axis of 1.5 cm on the left and 1.4 cm in the right. Findings a re similar to the prior exam. OTHER: A nonobstructing punctate calcification involving the left kidney. Thickening and nodularity left adrenal gland is too small to characterize possibly related to adenoma. Hypertrophic and degener ative changes spine. There is a small lymph node in the gastrohepatic ligament measuring 1 cm in short axis. IMPRESSION: 1. Persistent right middle lobe consolidation or atelectasis. There does appear to be reduction in ca liber of the right middle lobe bronchus correlate with bronchoscopy as clinically warranted. 2. Numerous bilateral pulmonary nodules persist and there is evidence of mediastinal and hilar adenop athy. The findings can be associated with sarcoidosis. Although, neoplastic process not excluded. 3. Nonobstructing punctate left renal calculus. 4. Subcentimeter nonspecific nodularity in the left adrenal gland.
== END | disposition home or self-care (01) ==
LOC: RADCTMAIN 07:30
PROVIDERS: ATTEND Internal Medicine Critical Care Medicine
DX: R91.8 Other nonspecific abnormal finding of lung field (principal); R59.0 Localized enlarged lymph nodes
CPT/HCPCS: 71260; Q9967

== ENCOUNTER 2020-12-07 12:34 | Emergency (ER) | payer BC ==
[2020-12-07] MEDS ORDERED: LIDOCAINE 5% PATCH TOPICAL STA (14:14)
--- NOTE | 2020-12-07 14:16 | ED ---
General Adult HPI - General Chief complaint: Abdominal Pain Stated complaint: Left Side Pain Time Seen by Provider: 12/07/20 13:49 Source: patient Mode of arrival: ambulatory Limitations: no limitations - History of Present Illness Initial comments: Dictation was produced using [employer] dictation software. please excuse any grammatical, word or spelling errors. This patient was cared for during a federal and state declared state of emergency secondary to Covid 19 Chief Complaint: 54-year-old female presents with pleurisy History of Present Illness: Patient is 54-year-old female she has past medical history of sarcoidosis and atrial fibrillation. Since the emergency Department with left anterior chest pain. Patient states her pain is sharp and is worse when she takes a deep breath. She also has palpable tenderness to the left anterior chest just under the breast. She was recently put on a Z-Horacio for sinus symptoms. She states that she still has a mild cough. She is concerned that her pleuritic symptoms are symptoms of a more serious underlying issue. The ROS documented in this emergency department record has been reviewed and confirmed by me. Those systems with pertinent positive or negative responses have been documented in the HPI. All other systems are other negative and/or noncontributory. PHYSICAL EXAM: General Impression: Alert and oriented x3, not in acute distress HEENT: Normocephalic atraumatic, extra-ocular movements intact, pupils equal and reactive to light bilaterally, mucous membranes moist. Cardiovascular: Heart regular rate and rhythm Chest: Able to complete full sentences, no retractions, no tachypnea, clear to auscultation bilaterally Abdomen: abdomen soft, non-tender, non-distended, no organomegaly Musculoskeletal: Pulses present and equal in all extremities, no peripheral edema Motor: no focal deficits noted Neurological: CN II-XII grossly intact, no focal motor or sensory deficits noted Skin: Intact with no visualized rashes Psych: Normal affect and mood ED course: 54-year-old female past medical history of sarcoidosis and atrial fibrillation presents with pleurisy. She's been struggling with URI for the last several days. She completed a course of Z-Horacio. She takes steroids regularly for sarcoidosis. Vital signs upon arrival are within acceptable limits. coronvirus is negative. Chest x-ray shows continued right middle lobe volume loss and consolidation. Patient reports she has history of lobectomy. There is slight increased patchy mid and lower lung opacities which could represent pneumonia. Also shows evidence of sarcoidosis. Patient was evaluated bedside at 3:20 PM in stable medical condition. States that her symptoms are slightly improved with Lidoderm patch. Patient notified of the results of her x-rays, and other studies. Patient is agreeable for discharge. She has an appointment with her primary care physician engineering test specialist in the near future. Patient is agreeable for discharge. She appears to be improving with Lidoderm patch. EKG interpretation: Ventricular rate 75, sinus rhythm,. Interval 150, QRS 80, QTC 471. No CO prolongation, no QTC prolongation, no ST or T-wave changes noted. EKG compared to November 06 showing no changes. Overall, this EKG is unremarkable - Related Data Home Medications Medication Instructions Recorded Confirmed Escitalopram [Lexapro] 10 mg PO DAILY 08/28/14 12/24/19 Levothyroxine Sodium [Synthroid] 75 mcg PO DAILY 08/28/14 12/24/19 amLODIPine [Norvasc] 5 mg PO DAILY 08/28/14 12/24/19 Apixaban [Eliquis] 5 mg PO BID 06/16/19 12/24/19 Cetirizine HCl [Zyrtec] 10 mg PO DAILY 11/02/19 12/24/19 Metoprolol Tartrate [Lopressor] 25 mg PO BID 11/02/19 12/24/19 Dronedarone [Multaq] 400 mg PO BID 11/20/19 12/24/19 Allergies Allergy/AdvReac Type Severity Reaction Status Date / Time No Known Allergies Allergy Verified 12/07/20 12:46 Review of Systems ROS Statement: Those systems with pertinent positive or pertinent negative responses have been documented in the HPI. ROS Other: All systems not noted in ROS Statement are negative. Past Medical History Past Medical History: Atrial Fibrillation, Hypertension, Thyroid Disorder Additional Past Medical History / Comment(s): HX SARCOIDOSIS. Recent Bronchitis, History of Any Multi-Drug Resistant Organisms: None Reported Past Surgical History: Appendectomy, Cardiac Ablation, EPS, Tubal Ligation Additional Past Surgical History / Comment(s): Exp laparotomy, lung biopsy, cardiac ablation, cardioversion Past Anesthesia/Blood Transfusion Reactions: No Reported Reaction Past Psychological History: Anxiety Smoking Status: Never smoker Past Alcohol Use History: None Reported Past Drug Use History: None Reported - Past Family History Mother Family Medical History: No Reported History Daughter(s) Family Medical History: Blood Disorder Additional Family Medical History / Comment(s): lupus anticoagulate disorder General Exam Limitations: no limitations Course Vital Signs 12/07/20 12:41 Temperature 98.1 F Pulse Rate 87 Respiratory 18 Rate Blood Pressure 171/97 O2 Sat by Pulse 99 Oximetry Medical Decision Making - Lab Data Lab Results 12/07/20 Range/Units 14:42 Coronavirus (PCR) Not Detected (Not Detectd) Disposition Clinical Impression: Pleurisy Disposition: HOME SELF-CARE Condition: Good Instructions (If sedation given, give patient instructions): Pleurisy (ED) Is patient prescribed a controlled substance at d/c from ED?: No Referrals: Khushi Kign MD [Primary Care Provider] - 1-2 days Time of Disposition: 15:24
--- NOTE | 2020-12-07 14:59 | XR ---
EXAMINATION TYPE: XR chest 2V DATE OF EXAM: 12/07/2020 COMPARISON: 12/24/[address] 07/23/2020 HISTORY: 54-year-old female pleurisy, left-sided chest pain. History of sarcoidosis. TECHNIQUE: PA and lateral views FINDINGS: Heart normal size. Bilateral hilar prominence. Patchy mid and lower lung opacities. Kamar B lines bi laterally. No sizable effusion. This seems to be right middle lobe opacification volume loss on the l ateral view. Right midlung nodularity increased. IMPRESSION: 1. Bilateral hilar prominence and septal thickening. Continued dense right middle lobe volume loss an d consolidation. Correlate with previous bronchoscopy results for the right middle lobe findings. 2. Slight increased patchy mid and lower lung opacities. Correlate to exclude pneumonia. 2. Short interval follow-up recommended given nodularity in the right midlung which appears more pron ounced, possible product of sarcoidosis.
[2020-12-07 15:37] VITALS: BP 165/78; PULSE 77; RESP 20; TEMP 98
== END 2020-12-07 15:35 | disposition home or self-care (01) ==
LOC: EC 12:34
DX: R09.1 Pleurisy (principal); I48.91 Unspecified atrial fibrillation; D86.9 Sarcoidosis, unspecified; I10 Essential (primary) hypertension; E07.9 Disorder of thyroid, unspecified; F41.9 Anxiety disorder, unspecified; Z20.822 Contact with and (suspected) exposure to COVID-19; Z79.890 Hormone replacement therapy; Z79.899 Other long term (current) drug therapy; Z79.01 Long term (current) use of anticoagulants
CPT/HCPCS: 71046; 87635; 93005; 99284

== ENCOUNTER → 2021-01-11 | Outpatient (CLI) | payer BC ==
--- NOTE | 2021-01-11 11:17 | CT ---
EXAMINATION TYPE: CT chest w con DATE OF EXAM: 01/11/2021 COMPARISON: 07/23/2020 HISTORY: follow up to sarcoidosis CT DLP: 495.2 mGycm Automated exposure control for dose reduction was used. CONTRAST: CT scan of the chest is performed with IV Contrast, patient injected with 100 mL of Isovue 300. FINDINGS: LUNGS: Numerous bilateral pulmonary nodules persist ranging in size from 1 to 2 mm-6 mm. There is mor e confluent area of infiltrate now identified.Right lower lobe posteriorly which could reflect pneumo rashmi infiltrate. There is persistent right middle lobe volume loss. No evidence for suspicious mass. MEDIASTINUM: Stable hilar and mediastinal adenopathy with subcarinal adenopathy measuring 1.8 cm whil e the largest calcified mediastinal lymph node measures 1.2 cm hilar adenopathy on the left measures 1.6 cm. Overall appearance is stable. No pericardial effusion is seen. Thoracic aorta is of normal caliber. The heart is enlarged with cor onary artery calcifications seen. UPPER ABDOMEN: No significant abnormality appreciated. OTHER: No additional significant abnormality is seen. IMPRESSION: 1. Persistent innumerable pulmonary nodules unchanged from prior study. 2. New area of infiltrate right lower lobe could reflect developing pneumonia. 3. Persistent right middle lobe volume loss or infiltrate. 4. Persistent hilar and mediastinal adenopathy compatible with the provided history of sarcoidosis.
== END | disposition home or self-care (01) ==
LOC: RADCTMAIN 10:09
PROVIDERS: ATTEND Internal Medicine Critical Care Medicine
DX: R91.8 Other nonspecific abnormal finding of lung field (principal); R59.0 Localized enlarged lymph nodes
CPT/HCPCS: 71260; Q9967

== ENCOUNTER → 2021-02-01 | Outpatient (CLI) | payer BC | END | disposition home or self-care (01) | LOC: LABWHC1 16:52 | PROVIDERS: ATTEND Internal Medicine Critical Care Medicine | DX: Z20.822 Contact with and (suspected) exposure to COVID-19 (principal); R05 Cough; J34.89 Other specified disorders of nose and nasal sinuses; R19.8 Other specified symptoms and signs involving the digestive system and abdomen | CPT/HCPCS: U0003; C9803; U0005 ==

== ENCOUNTER 2021-06-14 19:00 | Emergency (ER) | payer BC ==
[2021-06-14 19:15] VITALS: RESP 20; TEMP 97.9
[2021-06-14] MEDS ORDERED: METOPROLOL TARTRATE 5 MG/5 ML VIAL IVP STA (19:32)
--- NOTE | 2021-06-14 19:32 | ED ---
Arrhythmia/Palpitations HPI - General Chief Complaint: Arrhythmia/Palpitations Stated Complaint: Afib Time Seen by Provider: 06/14/21 19:10 Source: patient, RN notes reviewed Mode of arrival: ambulatory Limitations: no limitations - History of Present Illness Initial Comments: 55-year-old female history of atrial fibrillation she has had a history of ab lation and cardioversion who states he went back into A. fib around 2:30 this afternoon. She did take her medications around 6 PM but is still in A. fib. She denies any chest pain shortness breath fevers chills or sweats she states she has been under a lot of stress recently. The only other issue is she is started Diet several days ago but denies any caffeine intake or other medications MD Complaint: rapid heart beat, atrial fibrillation - Related Data Home Medications Medication Instructions Recorded Confirmed Escitalopram [Lexapro] 10 mg PO DAILY 08/28/14 12/07/20 Levothyroxine Sodium [Synthroid] 75 mcg PO DAILY 08/28/14 12/07/20 amLODIPine [Norvasc] 5 mg PO DAILY 08/28/14 12/07/20 Apixaban [Eliquis] 5 mg PO BID 06/16/19 12/07/20 Cetirizine HCl [Zyrtec] 10 mg PO DAILY 11/02/19 12/07/20 Metoprolol Tartrate [Lopressor] 25 mg PO BID 11/02/19 12/07/20 Dronedarone [Multaq] 400 mg PO BID 11/20/19 12/07/20 Previous Rx's Medication Instructions Recorded Azithromycin [Zithromax Z-pack (6 250 mg PO DIRECTED 5 Days #6 tab 06/14/21 tabs)] Allergies Allergy/AdvReac Type Severity Reaction Status Date / Time No Known Allergies Allergy Verified 06/14/21 19:12 Review of Systems ROS Statement: Those systems with pertinent positive or pertinent negative responses have been documented in the HPI. ROS Other: All systems not noted in ROS Statement are negative. Past Medical History Past Medical History: Atrial Fibrillation, Hypertension, Thyroid Disorder Additional Past Medical History / Comment(s): HX SARCOIDOSIS. Recent Bronchitis, History of Any Multi-Drug Resistant Organisms: None Reported Past Surgical History: Appendectomy, Cardiac Ablation, EPS, Tubal Ligation Additional Past Surgical History / Comment(s): Exp laparotomy, lung biopsy, cardiac ablation, cardioversion Past Anesthesia/Blood Transfusion Reactions: No Reported Reaction Past Psychological History: Anxiety Smoking Status: Never smoker Past Alcohol Use History: None Reported Past Drug Use History: None Reported - Past Family History Mother Family Medical History: No Reported History Daughter(s) Family Medical History: Blood Disorder Additional Family Medical History / Comment(s): lupus anticoagulate disorder General Exam - General Exam Comments Initial Comments: This is a well-developed well-nourished awake alert oriented 3 female Limitations: no limitations General appearance: alert, in no apparent distress Head exam: Present: atraumatic, normocephalic, normal inspection Eye exam: Present: normal appearance, PERRL, EOMI. Absent: scleral icterus, conjunctival injection, periorbital swelling ENT exam: Present: normal exam, mucous membranes moist Neck exam: Present: normal inspection, full ROM, other (No surgery or bruits). Absent: tenderness, meningismus, lymphadenopathy Respiratory exam: Present: normal lung sounds bilaterally. Absent: respiratory distress, wheezes, rales, rhonchi, stridor Cardiovascular Exam: Present: tachycardia, irregular rhythm. Absent: systolic murmur, diastolic murmur, rubs, gallop, clicks GI/Abdominal exam: Present: soft, normal bowel sounds. Absent: distended, tenderness, guarding, rebound, rigid Extremities exam: Present: normal inspection, full ROM, normal capillary refill. Absent: tenderness, pedal edema, joint swelling, calf tenderness Back exam: Present: normal inspection Neurological exam: Present: alert, oriented X3, CN II-XII intact Psychiatric exam: Present: normal affect, normal mood Skin exam: Present: warm, dry, intact, normal color. Absent: rash Course Vital Signs 06/14/21 06/14/21 06/14/21 19:12 19:35 19:53 Temperature 97.9 F Pulse Rate 130 H 75 Pulse Rate [ 125 H Pulse Oximetery ] Respiratory 20 20 Rate Blood Pressure 131/77 118/67 O2 Sat by Pulse 94 L 95 Oximetry - Reevaluation(s) Reevaluation #1: 06/14/21 20:38 The patient is spontaneously convert to normal sinus rhythm prior to medication being given. EKG Findings - EKG Results: EKG: interpreted by GENIE (Atrial fibrillation with a 21 AV conduction rate 128 QRS 86 QT since QTC 26/[address]-T wave configuration) Medical Decision Making - Medical Decision Making I did discuss [employer] the patient and her was present. Patient has had a cough with some yellow phlegm no fevers chills or sweats. No chest pain. Imaging shows evidence of right middle lobe infiltrate. 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 - Lab Data Result diagrams: 06/14/21 19:21 06/14/21 19: Lab Results 06/14/21 06/14/21 06/14/21 Range/Units 19:21 19: 19: WBC 12.0 H (3.8-10.6) k/uL RBC 5.07 (3.80-5.40) m/uL Hgb 15.3 (11.4-16.0) gm/dL Hct 44.7 (34.0-46.0) % MCV 88.1 (80.0-100.0) fL MCH 30.2 (25.0-35.0) pg MCHC 34.3 (31.0-37.0) g/dL RDW 14.6 (11.5-15.5) % Plt Count 484 H (150-450) k/uL MPV 7.1 Neutrophils % 80 % Lymphocytes % 10 % Monocytes % 5 % Eosinophils % 2 % Basophils % 1 % Neutrophils # 9.6 H (1.3-7.7) k/uL Lymphocytes # 1.2 (1.0-4.8) k/uL Monocytes # 0.6 (0-1.0) k/uL Eosinophils # 0.3 (0-0.7) k/uL Basophils # 0.1 (0-0.2) k/uL PT 11.0 (9.0-12.0) sec INR 1.0 (<1.2) APTT 29.6 (22.0-30.0) sec Sodium 135 L (137-145) mmol/L Potassium 4.6 (3.5-5.1) mmol/L Chloride 103 (98-107) mmol/L Carbon Dioxide 21 L (22-30) mmol/L Anion Gap 11 mmol/L BUN 19 H (7-17) mg/dL Creatinine 0.80 (0.52-1.04) mg/dL Est GFR (CKD-EPI)AfAm >90 (>60 ml/min/1.73 sqM) Est GFR (CKD-EPI)NonAf 83 (>60 ml/min/1.73 sqM) Glucose 106 H (74-99) mg/dL Calcium 9.9 (8.4-10.2) mg/dL Magnesium 2.2 (1.6-2.3) mg/dL Total Bilirubin 1.0 (0.2-1.3) mg/dL AST 27 (14-36) U/L ALT 18 (4-34) U/L Alkaline Phosphatase 132 H (38-126) U/L Creatine Kinase 65 (30-135) U/L Troponin I (0.000-0.034) ng/mL Total Protein 8.0 (6.3-8.2) g/dL Albumin 4.6 (3.5-5.0) g/dL TSH 8.460 H (0.465-4.680) mIU/L 06/14/21 Range/Units 19:21 WBC (3.8-10.6) k/uL RBC (3.80-5.40) m/uL Hgb (11.4-16.0) gm/dL Hct (34.0-46.0) % MCV (80.0-100.0) fL MCH (25.0-35.0) pg MCHC (31.0-37.0) g/dL RDW (11.5-15.5) % Plt Count (150-450) k/uL MPV Neutrophils % % Lymphocytes % % Monocytes % % Eosinophils % % Basophils % % Neutrophils # (1.3-7.7) k/uL Lymphocytes # (1.0-4.8) k/uL Monocytes # (0-1.0) k/uL Eosinophils # (0-0.7) k/uL Basophils # (0-0.2) k/uL PT (9.0-12.0) sec INR (<1.2) APTT (22.0-30.0) sec Sodium (137-145) mmol/L Potassium (3.5-5.1) mmol/L Chloride (98-107) mmol/L Carbon Dioxide (22-30) mmol/L Anion Gap mmol/L BUN (7-17) mg/dL Creatinine (0.52-1.04) mg/dL Est GFR (CKD-EPI)AfAm (>60 ml/min/1.73 sqM) Est GFR (CKD-EPI)NonAf (>60 ml/min/1.73 sqM) Glucose (74-99) mg/dL Calcium (8.4-10.2) mg/dL Magnesium (1.6-2.3) mg/dL Total Bilirubin (0.2-1.3) mg/dL AST (14-36) U/L ALT (4-34) U/L Alkaline Phosphatase (38-126) U/L Creatine Kinase (30-135) U/L Troponin I <0.012 (0.000-0.034) ng/mL Total Protein (6.3-8.2) g/dL Albumin (3.5-5.0) g/dL TSH (0.465-4.680) mIU/L - Radiology Data Radiology results: report reviewed, image reviewed (Imaging reviewed evidence of right middle lobe infiltrate previously seen on imaging.) Disposition Clinical Impression: Paroxysmal atrial fibrillation, Right middle lobe pneumonia Disposition: HOME SELF-CARE Condition: Good Instructions (If sedation given, give patient instructions): Heart Palpitations (ED), A-fib (Atrial Fibrillation) (ED), Community Acquired Pneumonia (ED) Prescriptions: Azithromycin [Zithromax Z-pack (6 tabs)] 250 mg PO DIRECTED 5 Days #6 tab Is patient prescribed a controlled substance at d/c from ED?: No Referrals: Khushi King MD [Primary Care Provider] - 1-2 days
[2021-06-14 19:38] LABS: Basophils # (A) 0.1 k/uL (0-0.2); Basophils % (A) 1 %; Eosinophils # (A) 0.3 k/uL (0-0.7); Eosinophils % (A) 2 %; HCT 44.7 % (34.0-46.0); HGB 15.3 gm/dL (11.4-16.0); Lymphocytes # (A) 1.2 k/uL (1.0-4.8); Lymphocytes % (A) 10 %; MCH 30.2 pg (25.0-35.0); MCHC 34.3 g/dL (31.0-37.0); MCV 88.1 fL (80.0-100.0); Mean Platelet Volume 7.1; Monocytes # (A) 0.6 k/uL (0-1.0); Monocytes % (A) 5 %; Neutrophils # (A) 9.6 k/uL (1.3-7.7); Neutrophils % (A) 80 %; Platelet Count 484 k/uL (150-450); RBC 5.07 m/uL (3.80-5.40); RDW 14.6 % (11.5-15.5)
[2021-06-14 19:46] LABS: Partial Thromboplastin Time 29.6 sec (22.0-30.0)
--- NOTE | 2021-06-14 19:49 | XR ---
EXAMINATION TYPE: XR chest 2V DATE OF EXAM: 06/14/2021 COMPARISON: 12/07/2020 HISTORY: Atrial fibrillation TECHNIQUE: 2 views FINDINGS: Heart size is normal. There is some right middle lobe consolidation. There is coarse inters titial infiltrate in both lungs. There is no definite pleural effusion. There is slight bulkiness of the pulmonary jacky consistent with adenopathy. IMPRESSION: Right middle lobe pneumonia. Coarse interstitial density and mild bronchial adenopathy co nsistent with a history of sarcoidosis. Right middle lobe infiltrate increased compared to old exam. Interstitial lung disease not significantly different.
[2021-06-14 19:57] LABS: ALT 18 U/L (4-34); AST 27 U/L (14-36); African American GFR (CKD) >90 (>60 ml/min/1.73 sqM); Albumin 4.6 g/dL (3.5-5.0); Alkaline Phosphatase 132 U/L (38-126); Anion Gap 11 mmol/L; Blood Urea Nitrogen 19 mg/dL (7-17); Calcium 9.9 mg/dL (8.4-10.2); Carbon Dioxide 21 mmol/L (22-30); Chloride 103 mmol/L (98-107); Creatine Kinase 65 U/L (30-135); Glucose 106 mg/dL (74-99); Magnesium 2.2 mg/dL (1.6-2.3); Non-African American GFR(CKD) 83 (>60 ml/min/1.73 sqM); Potassium 4.6 mmol/L (3.5-5.1); Sodium 135 mmol/L (137-145)
[2021-06-14] MEDS ORDERED: cefTRIAXone IN SWFI 1,000 MG/10 ML SYRINGE IVP STA (20:27)
[2021-06-14] MEDS ORDERED: AZITHROMYCIN 500 MG TAB PO STA (20:28)
[2021-06-14 21:05] VITALS: BP 126/66; PULSE 76
== END 2021-06-14 21:36 | disposition home or self-care (01) ==
LOC: EC 19:00
DX: I48.0 Paroxysmal atrial fibrillation (principal); J18.1 Lobar pneumonia, unspecified organism; I10 Essential (primary) hypertension; F41.9 Anxiety disorder, unspecified; Z79.01 Long term (current) use of anticoagulants; Z79.899 Other long term (current) drug therapy
CPT/HCPCS: 36415; 93005; 80053; 82550; 83735; 84443; 84484; 85025; 85610; 85730; 71046; 96365; 99285; J0696

== ENCOUNTER → 2021-06-23 | Outpatient (CLI) | payer BC | END | disposition home or self-care (01) | LOC: LABWHC1 15:09 | PROVIDERS: ATTEND Nurse Practitioner Adult Health | DX: D86.9 Sarcoidosis, unspecified (principal) | CPT/HCPCS: 36415; 82164; 86141 ==

== ENCOUNTER → 2021-07-24 | Outpatient (CLI) | payer BC ==
--- NOTE | 2021-07-25 07:25 | CT ---
EXAMINATION TYPE: CT chest w con DATE OF EXAM: 07/24/2021 COMPARISON: Chest CT January 11, 2021 and older studies HISTORY: Sarcoidosis CT DLP: 473.60 mGycm. Automated Exposure Control for Dose Reduction was Utilized. TECHNIQUE: CT scan of the thorax is performed following with IV Contrast, patient injected with 100 mL of Isovue 300. FINDINGS: LUNGS: Persistent area of triangular shaped consolidation with some areas of air bronchograms through out the right middle lobe axial image 33 for reference is redemonstrated. Right middle lobe bronchus shows narrowing and occlusion towards the hilum axial image 30. There is persistent mosaic attenuatio n with scattered parenchymal nodules bilaterally redemonstrated. Stable largest nodule with central c alcification up to 1.0 cm and the lateral left midlung axial image 24 is noted. Persistent mild centr al peribronchial wall thickening. No pleural effusion or pneumothorax bilaterally. MEDIASTINUM: There are significant confluent partially calcified bilateral hilar adenopathy along wi th multiple enlarged mediastinal lymph nodes. No significant change from prior studies. No cardiomeg edie or pericardial effusion is seen. Mild to moderate biatrial dilatation is redemonstrated. Enlarge d main pulmonary artery consistent with underlying pulmonary artery hypertension is redemonstrated. OTHER: [id number] multilevel spurring in the spine is again seen. IMPRESSION: Abnormal partially calcified thoracic adenopathy and parenchymal changes redemonstrated p resumed product of underlying sarcoidosis. No significant change from prior CTs.
== END | disposition home or self-care (01) ==
LOC: RADCTMAIN 15:09
PROVIDERS: ATTEND Internal Medicine Critical Care Medicine
DX: R59.0 Localized enlarged lymph nodes (principal)
CPT/HCPCS: 82164; 71260; Q9967

== ENCOUNTER → 2021-07-25 | Outpatient (CLI) | payer BC ==
[2021-07-26 08:41] LABS: Anion Gap 17.5 mmol/L (4.00-12.00); BUN/Creat Ratio 10.68 Ratio (12.00-20.00); Blood Urea Nitrogen 9.3 mg/dL (9.0-27.0); Carbon Dioxide 19.3 mmol/L (21.6-31.8); Globulin 3.1 g/dL (1.6-3.3); Non-African American GFR(CKD) 74.2 (60.0-200.0); Potassium 4.3 mmol/L (3.5-5.5)
[2021-07-26 08:42] LABS: Albumin 4.1 g/dL (3.8-4.9); Albumin/Globulin Ratio 1.3 (1.60-3.17); Calcium 9.7 mg/dL (8.7-10.3); Total Bilirubin 1.2 mg/dL (0.30-1.20); Total Protein 7.2 g/dL (6.2-8.2)
== END | disposition home or self-care (01) ==
LOC: LABWHC1 14:17
PROVIDERS: ATTEND Internal Medicine Critical Care Medicine
DX: D86.9 Sarcoidosis, unspecified (principal)
CPT/HCPCS: 36415; 80053; 82164

== ENCOUNTER → 2021-09-22 | Outpatient (CLI) | payer BC | END | disposition home or self-care (01) | LOC: LABWHC1 15:12 | PROVIDERS: ATTEND Internal Medicine | DX: E03.9 Hypothyroidism, unspecified (principal) | CPT/HCPCS: 36415; 84443 ==

== ENCOUNTER → 2022-07-26 | Outpatient (CLI) | payer BC ==
[2022-07-26 17:05] LABS: African American GFR (CKD) >90 (>60 ml/min/1.73 sqM); Anion Gap 11 mmol/L; Blood Urea Nitrogen 13 mg/dL (7-17); Calcium 9.1 mg/dL (8.4-10.2); Carbon Dioxide 22 mmol/L (22-30); Chloride 104 mmol/L (98-107); Glucose 82 mg/dL (74-99); Non-African American GFR(CKD) 84 (>60 ml/min/1.73 sqM); Sodium 137 mmol/L (137-145)
[2022-07-26 17:07] LABS: Potassium 4.5 mmol/L (3.5-5.1)
--- NOTE | 2022-07-26 18:39 | CT ---
EXAMINATION TYPE: CT chest w con DATE OF EXAM: 07/26/2022 COMPARISON: Prior chest CT July 24, 2021 and older studies. HISTORY: F/U SARCOIDOSIS CT DLP: 471.50 mGycm. Automated Exposure Control for Dose Reduction was Utilized. TECHNIQUE: CT scan of the thorax is performed following with IV Contrast, patient injected with 70 m L of Isovue 300. FINDINGS: LUNGS: Persistent area of triangular shaped consolidation throughout the right middle lobe axial imag es 33 through 43 for reference is redemonstrated. Right middle lobe bronchus shows narrowing and occl usion towards the hilum coronal images 55 through 59. There is persistent mosaic attenuation with sca ttered small parenchymal nodules bilaterally redemonstrated. Stable largest nodule with central calci fication up to 1.0 cm in the lateral left midlung axial image 27 and current study is redemonstrated. Areas of irregular consolidation posterior right greater than left upper lobes again seen. Persisten t mild to moderate central peribronchial wall thickening. No pleural effusion or pneumothorax bilater ally. MEDIASTINUM: There are significant confluent partially calcified bilateral hilar adenopathy along wit h multiple enlarged mediastinal lymph nodes. No significant change from prior studies. No cardiomega ly or pericardial effusion is seen. At least moderate left greater than right biatrial dilatation is redemonstrated. Enlarged main pulmonary artery suggesting underlying pulmonary artery hypertension is redemonstrated. Coronary artery calcification is present. OTHER: [id number] multilevel spurring in the spine is again seen. IMPRESSION: Abnormal partially calcified thoracic adenopathy and parenchymal changes redemonstrated p resumed product of underlying sarcoidosis. No significant change from most recent prior CT.
== END | disposition home or self-care (01) ==
LOC: RADCTMAIN 15:38
PROVIDERS: ATTEND Internal Medicine Critical Care Medicine
DX: D86.9 Sarcoidosis, unspecified (principal); R59.0 Localized enlarged lymph nodes
CPT/HCPCS: 80048; 82164; 71260; 36415; Q9967

== ENCOUNTER → 2022-10-02 | Outpatient (CLI) | payer BC ==
--- NOTE | 2022-10-03 10:27 | US ---
EXAMINATION TYPE: US transvaginal DATE OF EXAM: 10/02/2022 COMPARISON: NONE CLINICAL HISTORY: N95.0 POSTMENOPAUSAL BLEEDING. TECHNIQUE: Transvaginal (TV). Date of LMP: Postmenopausal EXAM MEASUREMENTS: Uterus: 6.8 x 3.4 x 4.0 cm Endometrial Stripe: 0.36 cm Right Ovary: Not visualized Left Ovary: Not visualized 1. Uterus: Anteverted wnl 2. Endometrium: Echogenic foci within fundal endometrium 0.39 x 0.11 x 0.27cm 3. Right Ovary: Obscured by overlying bowel gas 4. Left Ovary: Obscured by overlying bowel gas 5. Bilateral Adnexa: wnl 6. Posterior cul-de-sac: wnl IMPRESSION: 1. Punctate echogenic foci within the endometrium. Consider follow-up.
== END | disposition home or self-care (01) ==
LOC: RADUSWWP 16:41
PROVIDERS: ATTEND Internal Medicine
DX: N95.0 Postmenopausal bleeding (principal)
CPT/HCPCS: 76830

== ENCOUNTER → 2023-04-25 | Outpatient (CLI) | payer BC ==
--- NOTE | 2023-04-25 19:32 | US ---
EXAMINATION TYPE: US transvaginal DATE OF EXAM: 04/25/2023 COMPARISON: NONE CLINICAL INDICATION: Female, 57 years old with history of N95.0 POST MENOPAUSAL BLEEDING; postmenopau lionel bleeding. TECHNIQUE: Transvaginal (TV EXAM MEASUREMENTS: Uterus: 7.0 x 3.7 x 4.6 cm Endometrial Stripe: .4 cm 1. Uterus: Anteverted. Somewhat heterogeneous myometrium. 2. Endometrium: wnl 3. Right Ovary: Obscured by overlying bowel gas 4. Left Ovary: Obscured by overlying bowel gas 5. Bilateral Adnexa: wnl 6. Posterior cul-de-sac: wnl IMPRESSION: 1. Neither ovary could be visualized during the course of the exam. 2. Slightly heterogeneous myometrium may reflect a few small fibroid change or adenomyosis. 3. The endometrial stripe thickness is normal at 4 mm.
--- NOTE | 2023-04-25 20:32 | BD ---
EXAMINATION TYPE: Axial Bone Density DATE OF EXAM: 04/25/2023 CLINICAL HISTORY: 57 years old Female. ICD-10 CODE: N95.8 MENOPAUSAL STATE Height: 64.5 Weight: 261 FRAX RISK QUESTIONS: Family History (Parent hip fracture): no History of Fracture in Adulthood: no Secondary Osteoporosis: no RISK FACTORS HISTORY OF: Family History of Osteoporosis: no Active: yes Diet low in dairy products/other sources of calcium: yes Postmenopausal woman: yes Lost more than 2 inches in height since high school: no Frequent falls: no Poor Health: no MEDICATIONS: Thyroid Medications: yes Which medication: Synthroid How Lon+ years Additional Medications: yes heart meds, hbp meds, anxiety, vit d EXAM MEASUREMENTS: Bone mineral densitometry was performed using the [employer] System. Bone mineral density as measured about the Lumbar spine is: ----- L1-L4(G/cm2): 1.069 T Score Values are as follows: ----- L1: -0.6 ----- L2: -2.2 ----- L3: -1.1 ----- L4: -0.2 ----- L1-L4: -0.9 Z Score Values are as follows: ----- L1: -0.7 ----- L2: -2.3 ----- L3: -1.2 ----- L4: -0.3 ----- L1-L4: -1.0 Bone mineral density baseline Bone mineral density about the R hip (g/cm2): 0.745 Bone mineral density about the L hip (g/cm2): 0.784 T Score values are as follows: -----R Neck: -2.8 -----L Neck: -2.0 -----R Total: -2.1 -----L Total: -1.8 Z Score values are as follows: -----R Neck: -2.4 -----L Neck: -1.6 -----R Total: -2.1 -----L Total: -1.8 Bone mineral density baseline FRAX%s: The graph provided illustrates a 10.6% chance for a major osteoporotic fx and a 2.3% chance f or the hips probability for fx in 10 years time. IMPRESSION: Osteoporosis (T Score less than -2.5). There is increased fracture risk and therapy is usually indicated based on age. Re-Screen 1-2 years. NOTE: T-SCORE=SD OF THE YOUNG ADULT MEAN.
--- NOTE | 2023-04-30 19:40 | MM ---
Reason for Exam: Screening (asymptomatic). Last mammogram was performed 1 year(s) and 4 month(s) ago. Patient History: Menarche at age 14. First Full-Term at age 18. Postmenopausal. Risk Values: Thao 5 year model risk: 0.9%. NCI Lifetime model risk: 5.1%. Prior Study Comparison: 04/30/2018 Bilateral Screening Mammogram, [facility]. 01/11/2022 Bilateral Screening Mammogram, [facility]. Tissue Density: There are scattered fibroglandular densities. Findings: Analyzed By CAD. Unchanged focal asymmetry posterior upper outer quadrant left breast. There is no suspicious group of microcalcifications or new suspicious mass in either breast. Overall Assessment: Benign, BI-RAD 2 Management: Screening Mammogram of both breasts in 1 year. . Patient should continue monthly self-breast exams. A clinical breast exam by your physician is recommended on an annual basis. This exam should not preclude additional follow-up of suspicious palpable abnormalities. Note on Thao scores and lifetime risk: 1. A Thao score greater than 3% is considered moderate risk. If this is the case, consider specialist referral to assess eligibility for a risk reducing agent. 2. If overall lifetime risk for the development of breast cancer is 20% or higher, the patient may qualify for future screening with alternating mammogram and breast MRI. Electronically signed and approved by: Kaye Rush M.D. Radiologist
== END | disposition home or self-care (01) ==
LOC: RADBDWWP 14:15
PROVIDERS: ATTEND Internal Medicine
DX: Z12.31 Encounter for screening mammogram for malignant neoplasm of breast (principal); M85.89 Other specified disorders of bone density and structure, multiple sites; M81.0 Age-related osteoporosis without current pathological fracture; Z78.0 Asymptomatic menopausal state
CPT/HCPCS: 76830; 77063; 77067; 77080

== ENCOUNTER → 2023-07-22 | Outpatient (CLI) | payer BC ==
--- NOTE | 2023-07-23 08:37 | CT ---
EXAMINATION TYPE: CT chest w con DATE OF EXAM: 07/22/2023 COMPARISON: 07/26/2022 HISTORY: Difficulty in breathing and cough x 2 weeks. History of sarcoidosis. CT DLP: 515.3 mGycm Automated exposure control for dose reduction was used. CONTRAST: CT scan of the chest is performed with IV Contrast, patient injected with 100 cc mL of Isovue 300. FINDINGS: LUNGS: Right middle lobe consolidation is redemonstrated. Small parenchymal subcentimeter nodules are seen scattered bilaterally and subpleural nodularity noted as well. Nodules appear to be stable. The re is increased patchy type infiltrate within the right lower lobe new from prior examination. Persis tent peribronchial wall thickening seen bilaterally. No evidence of pleural effusion or pneumothorax. MEDIASTINUM: Again noted are multiple calcified lymph nodes within the superior mediastinum extending into the paratracheal regions, AP window and subcarinal region. Hilar calcified lymph nodes are also redemonstrated from prior examination. Thoracic aorta is of normal caliber. The heart is not enlarge d. UPPER ABDOMEN: No significant abnormality appreciated. OTHER: No additional significant abnormality is seen. IMPRESSION: 1. Essentially stable features of sarcoidosis however there is increasing patchy density right lower lobe which could reflect superimposed pneumonia. Correlate clinically.
== END | disposition home or self-care (01) ==
LOC: RADCTMAIN 15:28
PROVIDERS: ATTEND Internal Medicine Critical Care Medicine
DX: D86.9 Sarcoidosis, unspecified (principal); R06.00 Dyspnea, unspecified; J98.4 Other disorders of lung
CPT/HCPCS: 71260; Q9967

== ENCOUNTER → 2024-01-07 | Outpatient (CLI) | payer BC ==
[2024-01-07 15:48] LABS: Basophils # (A) 0.07 X 10*3/uL (0.00-0.10); Basophils % (A) 0.5 %; Eosinophils # (A) 0.08 X 10*3/uL (0.04-0.35); Eosinophils % (A) 0.6 %; HCT 44.1 % (37.2-46.3); HGB 14.4 g/dL (12.0-15.0); Lymphocytes % (A) 6.3 %; MCH 28.7 pg (27.0-32.0); MCHC 32.7 g/dL (32.0-37.0); Mean Platelet Volume 9.7 FL (9.5-12.2); Monocytes # (A) 0.97 X 10*3/uL (0.20-1.00); Monocytes % (A) 6.8 %; NRBC Per 100 WBC 0 X 10*3/uL (0.00-0.01); Neutrophils # (A) 12.13 X 10*3/uL (1.80-7.70); Neutrophils % (A) 85.4 %; Platelet Count 386 X 10*3/uL (140-440); RBC 5.01 X 10*6/uL (4.10-5.20); RDW 14.2 % (11.5-14.5); WBC 14.21 X 10*3/uL (4.50-10.00)
[2024-01-07 16:13] LABS: ALT 30 U/L (8-44); AST 26 U/L (13-35); Albumin/Globulin Ratio 1.25 Ratio (1.60-3.17); Alkaline Phosphatase 108 U/L (41-126); BUN/Creat Ratio 14.25 Ratio (12.00-20.00); Blood Urea Nitrogen 11.4 mg/dL (9.0-27.0); Calcium 9.7 mg/dL (8.7-10.3); Carbon Dioxide 26.3 mmol/L (21.6-31.8); Chloride 101 mmol/L (96-109); Globulin 3.2 g/dL (1.6-3.3); Glucose 84 mg/dL (70-110); LDL Cholesterol,Calculated 153.4 mg/dL (0.0-131.0); Potassium 5.1 mmol/L (3.5-5.5); Sodium 138 mmol/L (135-145); Total Bilirubin 1.2 mg/dL (0.3-1.2); Total Protein 7.2 g/dL (6.2-8.2); VLDL Calculation 14.88 mg/dL (5.00-40.00)
== END | disposition home or self-care (01) ==
LOC: LABWHC1 10:55
PROVIDERS: ATTEND Internal Medicine
DX: Z00.01 Encounter for general adult medical examination with abnormal findings (principal); Z13.220 Encounter for screening for lipoid disorders; D86.9 Sarcoidosis, unspecified; E55.9 Vitamin D deficiency, unspecified; E03.9 Hypothyroidism, unspecified
CPT/HCPCS: 36415; 80053; 80061; 82164; 82306; 84443; 85025

== ENCOUNTER → 2024-04-28 | Outpatient (CLI) | payer BC ==
--- NOTE | 2024-05-03 14:38 | MM ---
Reason for Exam: Screening (asymptomatic). Last screening mammogram was performed 12 month(s) ago. Patient History: Menarche at age 14. First Full-Term at age 18. Postmenopausal. Patient has history of breast feeding. Risk Values: Thao 5 year model risk: 0.9%. NCI Lifetime model risk: 5.0%. Prior Study Comparison: 04/30/2018 Bilateral Screening Mammogram, [facility]. 01/11/2022 Bilateral Screening Mammogram, [facility]. 04/25/2023 Bilateral MG 3D screening mammo w/cad, [facility]. Tissue Density: There are scattered areas of fibroglandular density. Findings: Analyzed By CAD. The pattern is symmetrical. No significant interval change is evident. Focal asymmetry in the outer left breast is stable. No suspicious groups of microcalcifications, spiculated or lobular masses, architectural distortion or other secondary signs of malignancy are mammographically apparent. Overall Assessment: Benign, BI-RAD 2 Management: Screening Mammogram of both breasts in 1 year. A negative mammogram report should not preclude additional follow up of suspicious palpable abnormalities. Patient should continue monthly self breast exam. A clinical breast exam by your physician is recommended on an annual basis and results should be correlated with mammographic findings. Note on Thao scores and lifetime risk: 1. A Thao score greater than 3% is considered moderate risk. If this is the case, consider specialist referral to assess eligibility for a risk reducing agent. 2. If overall lifetime risk for the development of breast cancer is 20% or higher, the patient may qualify for future screening with alternating mammogram and breast MRI. Electronically signed and approved by: Carlos Francis D.O. Radiologis
== END | disposition home or self-care (01) ==
LOC: RADMAMWWP 12:49
PROVIDERS: ATTEND Internal Medicine
DX: Z12.31 Encounter for screening mammogram for malignant neoplasm of breast (principal); R92.323 Mammographic fibroglandular density, bilateral breasts; Z78.0 Asymptomatic menopausal state
CPT/HCPCS: 77063; 77067

== ENCOUNTER → 2024-08-20 | Outpatient (CLI) | payer BC ==
[2024-08-20 10:56] LABS: ALT 44 U/L (4-34); AST 48 U/L (14-36); African American GFR (CKD) >90 (>60 ml/min/1.73 sqM); Albumin 3.9 g/dL (3.5-5.0); Albumin/Globulin Ratio 1.1; Alkaline Phosphatase 111 U/L (38-126); Anion Gap 2 mmol/L; Blood Urea Nitrogen 11 mg/dL (7-17); Calcium 9.3 mg/dL (8.4-10.2); Carbon Dioxide 29 mmol/L (22-30); Chloride 107 mmol/L (98-107); Globulin 3.5 g/dL; Glucose 86 mg/dL (74-99); Non-African American GFR(CKD) >90 (>60 ml/min/1.73 sqM); Potassium 4.6 mmol/L (3.5-5.1); Sodium 138 mmol/L (137-145); Total Bilirubin 1.4 mg/dL (0.2-1.3); Total Protein 7.4 g/dL (6.3-8.2)
--- NOTE | 2024-08-20 11:19 | CT ---
EXAMINATION TYPE: CT chest w con DATE OF EXAM: 08/20/2024 COMPARISON: 07/22/2023 CLINICAL INDICATION: Female, 58 years old with history of D86.9 SARCOIDOSIS, UNSPECIFIED; PHH, F/U SA RCOIDOSIS. PRIOR ON PACS TECHNIQUE: CT scan of the chest is performed with IV Contrast, patient injected with 100 ml mL of Isovue 300. M IP Images are created on CT scanner and reviewed. 3D reconstructed images are created on an [employer] workstation and reviewed. CT DLP: 418.[address] CTDI: mGy Automated exposure control for dose reduction was used. FINDINGS: There is persistent marked consolidation and collapse of the right middle lobe. There are multiple innumerable scattered pleural and parenchymal nodules bilaterally which grossly ap pears stable. There is an area of partial airspace consolidation or thick interstitial scarring in the right lung a pex. There is a partially consolidative opacity in the right lower lobe which is stable as well. Find ings are consistent with the provided history of sarcoidosis. There are multiple stable mediastinal and hilar borderline-enlarged lymph nodes many of which are tomas cified. There is no pleural effusion or pneumothorax. The main pulmonary artery is dilated to 3.5 cm which could indicate a degree of pulmonary hypertensio n. There is no thoracic aortic aneurysm. Limited scans the upper abdomen reveals no gross abnormality. No focal osseous lesions are seen. IMPRESSION: 1. Stable parenchymal and interstitial changes as described above. The findings are consistent with t he provided history of sarcoidosis. No significant interval change. 2. 3.5 cm dilatation of the main pulmonary artery which could indicate pulmonary hypertension and cli nical correlation is recommended Follow-up recommendations for incidental pulmonary nodules are per [employer] [place] or [employer]. [facility], , 08/20/2024 11:16 AM
== END | disposition home or self-care (01) ==
LOC: RADCTMAIN 09:49
PROVIDERS: ATTEND Internal Medicine Critical Care Medicine
DX: I27.20 Pulmonary hypertension, unspecified (principal); D86.9 Sarcoidosis, unspecified; R91.1 Solitary pulmonary nodule
CPT/HCPCS: 80053; 82164; 71260; 36415; Q9967

== ENCOUNTER → 2025-05-07 | Outpatient (CLI) | payer BC ==
[2025-05-08 02:05] LABS: Basophils # (A) 0.08 X 10*3/uL (0.00-0.10); Basophils % (A) 0.9 %; Eosinophils # (A) 0.13 X 10*3/uL (0.04-0.35); Eosinophils % (A) 1.5 %; HCT 44.1 % (37.2-46.3); HGB 14.0 g/dL (12.0-15.0); Immature Grans, Automated 0.40 %; Lymphocytes # (A) 0.83 X 10*3/uL (0.90-5.00); Lymphocytes % (A) 9.8 %; MCH 29.0 pg (27.0-32.0); MCHC 31.7 g/dL (32.0-37.0); MCV 91.3 FL (80.0-97.0); Monocytes # (A) 0.65 X 10*3/uL (0.20-1.00); Monocytes % (A) 7.7 %; NRBC Per 100 WBC 0 X 10*3/uL (0.00-0.01); Neutrophils # (A) 6.77 X 10*3/uL (1.80-7.70); Neutrophils % (A) 79.7 %; Platelet Count 340 X 10*3/uL (140-440); RBC 4.83 X 10*6/uL (4.10-5.20); RDW 14.4 % (11.5-14.5); WBC 8.49 X 10*3/uL (4.50-10.00)
[2025-05-08 02:30] LABS: Cholesterol 257.00 mg/dL (0.00-200.00); HDL Cholesterol 66.40 mg/dL (40.00-60.00); Triglycerides 72.70 mg/dL (0.00-149.00); VLDL Calculation 14.54 mg/dL (5.00-40.00)
[2025-05-08 02:31] LABS: LDL Cholesterol,Calculated 176.1 mg/dL (0.0-131.0); T4, Free (Free Thyroxine) 1.54 ng/dL (0.80-1.80)
[2025-05-08 03:35] LABS: ALT 20 U/L (8-44); Albumin 3.9 g/dL (3.8-4.9); Albumin/Globulin Ratio 1.18 Ratio (1.60-3.17); Alkaline Phosphatase 61 U/L (41-126); Anion Gap 13.30 mmol/L (4.00-12.00); BUN/Creat Ratio 10.89 Ratio (12.00-20.00); Blood Urea Nitrogen 9.8 mg/dL (9.0-27.0); Calcium 9.2 mg/dL (8.7-10.3); Carbon Dioxide 22.7 mmol/L (21.6-31.8); Chloride 105 mmol/L (96-109); Globulin 3.3 g/dL (1.6-3.3); Glucose 85 mg/dL (70-110); Sodium 141 mmol/L (135-145); Total Protein 7.2 g/dL (6.2-8.2)
== END | disposition home or self-care (01) ==
LOC: LABWHC1 14:01
PROVIDERS: ATTEND Internal Medicine
DX: Z12.31 Encounter for screening mammogram for malignant neoplasm of breast (principal); Z13.220 Encounter for screening for lipoid disorders; I10 Essential (primary) hypertension; E55.9 Vitamin D deficiency, unspecified; E03.9 Hypothyroidism, unspecified
CPT/HCPCS: 36415; 80053; 80061; 82306; 84439; 84443; 85025

== ENCOUNTER → 2025-05-11 | Outpatient (CLI) | payer BC ==
--- NOTE | 2025-05-11 09:44 | US ---
EXAMINATION TYPE: US liver DATE OF EXAM: 05/11/2025 COMPARISON: NONE CLINICAL INDICATION: Female, 59 years old with history of K76.0 FATTY (CHANGE OF) LIVER, NOT ELSEWHER E CLASS; Appendectomy. Fatty liver. TECHNIQUE: Grayscale and color Doppler imaging of the right upper quadrant. FINDINGS: EXAM MEASUREMENTS: Liver Length: 16.3 cm Gallbladder Wall: 0.20 cm CBD: 0.38 cm, color Doppler imaging was utilized to isolate the common bile duct for measurement. Right Kidney: 10.7 x 4.4 x 4.5 cm BATH STEWARD NOTES: Exam is limited due to gas. Pancreas: Obscured by bowel gas. Visualized portions within normal limits. Liver: Slight coarsening of the liver. Gallbladder: wnl Evidence for sonographic Jimenez's sign: No CBD: wnl Right Kidney: No hydronephrosis or masses seen IMPRESSION: Mildly coarse echotexture of liver can be seen with underlying mild hepatocellular disease or hepatic steatosis. [facility], , 05/11/2025 9:42 AM
== END | disposition home or self-care (01) ==
LOC: RADUSWWP 08:50
PROVIDERS: ATTEND Internal Medicine
DX: K76.0 Fatty (change of) liver, not elsewhere classified (principal); K76.89 Other specified diseases of liver
CPT/HCPCS: 76705

== ENCOUNTER → 2025-05-11 | Outpatient (CLI) | payer BC ==
--- NOTE | 2025-05-11 12:16 | MM ---
Reason for Exam: Screening (asymptomatic). Last screening mammogram was performed 12 month(s) ago. Patient History: Menarche at age 14. First Full-Term at age 18. Postmenopausal. Patient has history of breast feeding. Risk Values: Thao 5 year model risk: 0.9%. NCI Lifetime model risk: 4.9%. Prior Study Comparison: 01/11/2022 Bilateral Screening Mammogram, [facility]. 04/25/2023 Bilateral MG 3D screening mammo w/cad, [facility]. 04/28/2024 Bilateral MG 3D screening mammo w/cad, [facility]. Tissue Density: There are scattered areas of fibroglandular density. Findings: Analyzed By CAD. There is no suspicious group of microcalcifications or new suspicious mass in either breast. Overall Assessment: Negative, BI-RAD 1 Management: Screening Mammogram of both breasts in 1 year. Patient should continue monthly self-breast exams. A clinical breast exam by your physician is recommended on an annual basis. This exam should not preclude additional follow-up of suspicious palpable abnormalities. Note on Thao scores and lifetime risk: 1. A Thao score greater than 3% is considered moderate risk. If this is the case, consider specialist referral to assess eligibility for a risk reducing agent. 2. If overall lifetime risk for the development of breast cancer is 20% or higher, the patient may qualify for future screening with alternating mammogram and breast MRI. [facility], , 05/11/2025 12:13 PM. Electronically signed and approved by: Kaye Rush M.D. Radiologist
== END | disposition home or self-care (01) ==
LOC: RADMAMWWP 08:53
PROVIDERS: ATTEND Internal Medicine
DX: Z12.31 Encounter for screening mammogram for malignant neoplasm of breast (principal); R92.323 Mammographic fibroglandular density, bilateral breasts; Z78.0 Asymptomatic menopausal state
CPT/HCPCS: 77063; 77067